=== PATIENT | female | born 1945 | race Asian ===

== ENCOUNTER → 2024-06-12 12:20 | Outpatient (REF) | payer MEDICARE, OTHER, SELFPAY | LOC: HWRAD 12:20 | PROVIDERS: ATTENDING PHYSICIAN Family Medicine | DX: J84.10 Pulmonary fibrosis, unspecified (principal) | CPT/HCPCS: 71250 ==

== ENCOUNTER → 2024-10-01 06:34 | Outpatient (REF) | payer MEDICARE, OTHER, SELFPAY | LOC: PAVMRI 06:34 | PROVIDERS: ATTENDING PHYSICIAN Physician Assistant; FAMILY PHYSICIAN Family Medicine | DX: M54.12 Radiculopathy, cervical region (principal) | CPT/HCPCS: 72141 ==

== ENCOUNTER 2024-10-08 10:22 | Inpatient (IN) | payer MEDICARE, OTHER, SELFPAY ==
[2024-10-07 15:09] VITALS: BP 167/77; BMI 22.4
[2024-10-07 15:24] LABS: % Basophils 0.7 % (0-2); % Eosinophils 1.3 % (0-6); % Immature Granulocytes 0.5 % (0-0.5); % Monocytes 9.2 % (1.7-9.3); % Neutrophils 66.3 % (42.2-75.2); Absolute Basophils 0.1 10^3/uL (0-0.2); Absolute Eosinophils 0.1 10^3/uL (0-0.7); Absolute Lymphocytes 1.9 10^3/uL (1.2-3.4); Absolute Monocytes 0.8 10^3/uL (0.1-0.6); Absolute Neutrophils 5.7 10^3/uL (1.4-6.5); Hematocrit 35.2 % (37.0-47.0); Hemoglobin 11.5 g/dL (12.0-16.0); Mean Corp Hgb Conc. 32.7 g/dL (33.0-37.0); Mean Corpuscular Hgb 25.1 pg (27.0-31.0); Mean Corpuscular Volume 76.9 fL (81.0-99.0); Mean Platelet Volume 11.4 fL (7.4-10.4); Nucleated Red Blood Cells % 0 %; Platelet Count 334 10^3/uL (130-400); Red Blood Cell Count 4.58 10^6/uL (4.20-5.40); White Blood Cell Count 8.6 10^3/uL (4.8-10.8)
--- NOTE | 2024-10-07 15:33 | ED.CVA ---
History of Present Illness
<Missael Littlejohn DO - Last Filed: 10/07/24 15:34>
General
Chief Complaint: CVA/TIA Symptoms
Time Seen by Provider: 10/07/24 15:10
<Zeina Mace PA-C - Last Filed: 10/07/24 22:35>
General
Source: patient and family
Exam Limitations: other
Nursing documentation reviewed up to this point in time: agreed with
Onset of Stroke Symptoms
Onset of symptoms known: Yes
Date of onset of symptoms: 10/07/24
Time of onset of symptoms: 13:40
Time pt last seen normal is known: Yes
Date last time pt seen normal: 10/07/24
Time last time pt seen normal: 13:30
History of Present Illness
History of Present Illness:
Patient is an 79-year-old female with history hypertension, hyperlipidemia, hypothyroid presenting to the emergency department via EMS following unwitnessed fall. Patient is not [place]-speaking. Offered design lead�although patient and family
request family translation.
Family states that at around 1:40 PM her daughter came out of the bathroom and found her mom slumped over, although awake. At that time her mom was having trouble seeking. Patient states that she was walking to the couch when she felt her left
hand go numb so she sat on the couch. It appears that she then fell forward striking her face on the hardwood floor. Following the fall she was alert, although had difficulty speaking. Family states that her speech remains somewhat slurred.
Patient denies any preceding chest pain, shortness of breath, dizziness, lightheadedness, sweatiness, nausea/vomiting prior to fall. Patient denies any current headache, neck pain, weakness, numbness/tingling.
Patient is on Plavix.
Past History
<Missael Littlejohn DO - Last Filed: 10/07/24 15:34>
Past History
ED Past Medical History: HTN, Hypercholesterolemia, Hypothyroidism, Psychiatric (Depression, ) and Other (Interstitial lung disease); Negative Asthma or NIDDM
ED Past Surgical History: Orthopedic (Al knee replacements, Shoulder surgery, ) and Other (Cataracts)
Social History
Tobacco: Non-smoker
Alcohol: None
Personal:
Living: with family
Review of Systems
<Zeina Mace PA-C - Last Filed: 10/07/24 22:35>
Review of Systems
Allergies reviewed?: Yes
All Other Systems: ROS reviewed and negative except as documented in HPI and ROS
Phy Exam
<Zeina Mace PA-C - Last Filed: 10/07/24 22:35>
Physical Exam
Physical Exam:
Vitals: Hypertensive, mildly tachycardic. Afebrile
General: Patient is well appearing, no acute distress. Nontoxic appearing
Skin: Warm and dry, no rashes or lesions
Head: Normocephalic, atraumatic
Eyes: Sclera nonicteric. EOMs intact. Visual borges intact. No nystagmus. Hematoma noted to left lateral brow. No proptosis or evidence of ocular trauma.
Throat: Protecting airway
Neck: Normal ROM, no cervical spine tenderness, no meningismus
Cardiac: Mildly tachycardic, normal rhythm, no murmurs.
Pulm: Normal respiratory effort, no wheezes, rales, rhonchi heard on exam.
Abdomen: No abdominal tenderness.
Extremities: No evidence of cyanosis or edema. Sensation fully intact to fine and dull touch. Strength 5 out of 5 in upper and lower extremities.
Neuro: AAOx3. CN II-XII intact. Subjective slurred speech. Follows commands. Normal [id number].
Psychiatric: Normal affect.
Scores
<Zeina Mace PA-C - Last Filed: 10/07/24 22:35>
NIH Stroke Score
Level of Consciousness: 0 - Alert
LOC Questions: 0-Answers both correctly
LOC Commands: 0-Performs both correctly
Best Horizontal Gaze: 0-Normal
Visual Borges: 0=Normal, no visual loss
Facial Palsy: 0=Normal, symmetrical
Motor - Right Arm: 0=No drift 10 seconds
Motor - Left Arm: 0=No drift 10 seconds
Motor - Right Le-No drift 5 seconds
Motor - Left Le-No drift 5 seconds
Limb Ataxia: 0-Absent
Sensation: 0-Normal
Best Language: 0-No aphasia
Dysarthria: 1-Mild slurring (According to patient's family at bedside, not appreciated by examiner)
Extinction and Inattention: 0-No abnormality
Total Score:: 1
Course
<Missael Littlejohn, DO - Last Filed: 10/07/24 15:34>
Orders/Labs/Results
Orders:
Orders
10/07/24 15:13
Electrocardiogram (*1) Urgent
Reason for Study: Fatigue / Weakness
EKG- Treatment ONCE
10/07/24 15:14
Basic Metabolic Panel Urgent
Complete Blood Count/With Diff Urgent
10/07/24 15:33
CT HEAD STROKE ALERT W/o Cont Urgent
Comment:
Reason For Exam: left hand numb, dysphia, head strike on plavix
10/07/24 15:49
PTT Urgent
Prothrombin Time Urgent
10/07/24 16:02
Aspirin Chewable [Low Strength Aspirin] 81 mg PO NOW STA
10/07/24 16:07
NEUROLOGY CONSULT Urgent
Consulting Provider: Shawn Waters
Was physician already notified: Yes
10/07/24 16:11
Troponin I Urgent
10/07/24 16:39
Add On- LAB Urgent
Tests Added?: lipid panel
10/07/24 17:00
Lorazepam [Ativan] 1 mg PO ONCE ONE
10/07/24 17:06
Admit/Transfer Patient As Directed
Co-Sign Provider:
Level of Care: Observation services
Assign to:: Telemetry
Physician / Group: Moises Guerra
Diagnosis: syncope, speech changes
Reason for Telemetry: CVA/TIA
Date to Stop Telemetry: 10/10/24
Time to Stop Telemetry: 11:00
10/07/24 17:07
PRN Pain Medication Management As Directed
May give lesser potent ordered pain med per pt: Yes
preference::
Protocol:: Medication orders for pain may be administered in a
manner that supports deferring to patient preference
when the pt is:
- Requesting an ordered lesser potent pain medication.
Least to most potent pain medications are defined
as: acetaminophen < NSAID < tramadol < opioids
(morphine, oxycodone, hydromorphone).
- Requesting a lesser dose of the same medication IF
ORDERED.
- Requesting a less intrusive route of administration
if both routes are prescribed by the provider (PO <
IV).
10/07/24 17:08
Code Status As Directed
Resuscitation Status: Full Code
10/07/24 17:58
Acetaminophen [Tylenol] 650 mg PO Q4HPRN PRN
Albuterol [ProAIR HFA INHALER] 1 puff INH R Q6HPRN PRN
10/07/24 17:58
MA [facility] Wo Routine
Comment:
Reason For Exam: stroke/TIA
Recent pill cam endoscopy?: No
MA Neck With Contrast Routine
Comment:
Reason For Exam: stroke/TIA
Recent pill cam endoscopy?: No
MR Brain Without Contrast Routine
Comment:
Reason For Exam: stroke/TIA
Recent pill cam endoscopy?: No
Activity As Directed
Activity Level: With Assistance
NIH Stroke Scale As Directed
Directions: Per protocol
Comment: every shift and with any change in condition or mental status
Neurological Checks As Directed
Frequency: q4h
Additional Instructions:: q4h x 24h upon admission to the floor, then qshift & with any change in condition
and mental status
Orthostatic Vital Signs As Directed
Orthostatic VS Frequency: BID
Patient Education As Directed
Type: Stroke education packet
Comment: provide to patient and family
Pneumatic Compression Sleeves As Directed
Type: Knee high
Vital Signs As Directed
Frequency: Per unit guidelines
Ot Eval And Treat Routine
Pt Eval And Treat Routine
Activity Level: With Assistance
Speech Therapy Eval & Treat Routine
DX Deep Vein Thrombosis Video Routine
10/07/24 18:04
Ketotifen Fumarate [Zaditor] 1 drop BOTH EYES DAILYPRN PRN
10/07/24 20:00
Calcium Carbonate/Vitamin D3 [Oscal 500 + D] 500 mg PO BID
10/07/24 22:00
Escitalopram Oxalate [Lexapro] 10 mg PO HS
Famotidine [Pepcid] 20 mg PO HS
Gabapentin [Neurontin] 100 mg PO HS
10/08/24 06:00
Basic Metabolic Panel IN AM
Cardiovascular Evaluation IN AM
Complete Blood Count/No Diff IN AM
Glycohemoglobin (HgbA1c) IN AM
Levothyroxine [Synthroid] 75 mcg PO DAILY @ 0600
10/08/24 08:00
Aspirin Chewable [Low Strength Aspirin] 81 mg PO DAILY
Clopidogrel Bisulfate [Plavix] 75 mg PO DAILY
Montelukast Sodium [Singulair] 10 mg PO DAILY
Pantoprazole [Protonix] 40 mg PO DAILY
Pravastatin Sodium [Pravachol] 40 mg PO DAILY
Valsartan [Diovan] 80 mg PO DAILY
fluticasone furoate-vilanterol [Breo Ellipta] 1 inh INH R DAILY
10/08/24 12:00
Multivitamin [Theragran] 1 tablet PO NOON
10/10/24 11:00
DC Protocol for Telemetry ONCE
Abnormal Lab Results
10/07/24
15:14
Hgb 11.5 L g/dL
(12.0-16.0)
Hct 35.2 L %
(37.0-47.0)
MCV 76.9 L fL
(81.0-99.0)
MCH 25.1 L pg
(27.0-31.0)
MCHC 32.7 L g/dL
(33.0-37.0)
RDW 18.0 H %
(11.5-14.5)
MPV 11.4 H fL
(7.4-10.4)
Absolute Monos (auto) 0.8 H 10^3/uL
(0.1-0.6)
Glucose 108 H mg/dl
(70-99)
10/07/24 15:14
10/07/24 15:14
Vital Signs
Initial and Last Documented VS:
Initial Vital Signs
Temp Pulse Resp BP Pulse Ox
98.3 F 101 23 167/77 97
10/07/24 15:09 10/07/24 15:09 10/07/24 15:09 10/07/24 15:09 10/07/24 15:09
Last Documented Vital Signs
Temp Pulse Resp BP Pulse Ox
97.7 F 91 16 171/91 99
10/07/24 18:12 10/07/24 18:12 10/07/24 18:12 10/07/24 18:12 10/07/24 18:12
<Zeina Mace PA-C - Last Filed: 10/07/24 22:35>
Orders/Labs/Results
Orders:
Orders
10/07/24 15:13
Electrocardiogram (*1) Urgent
Reason for Study: Fatigue / Weakness
EKG- Treatment ONCE
10/07/24 15:14
Basic Metabolic Panel Urgent
Complete Blood Count/With Diff Urgent
10/07/24 15:33
CT HEAD STROKE ALERT W/o Cont Urgent
Comment:
Reason For Exam: left hand numb, dysphia, head strike on plavix
10/07/24 15:49
PTT Urgent
Prothrombin Time Urgent
10/07/24 16:02
Aspirin Chewable [Low Strength Aspirin] 81 mg PO NOW STA
10/07/24 16:07
NEUROLOGY CONSULT Urgent
Consulting Provider: Shawn Waters
Was physician already notified: Yes
10/07/24 16:11
Troponin I Urgent
10/07/24 16:39
Add On- LAB Urgent
Tests Added?: lipid panel
10/07/24 17:00
Lorazepam [Ativan] 1 mg PO ONCE ONE
10/07/24 17:06
Admit/Transfer Patient As Directed
Co-Sign Provider:
Level of Care: Observation services
Assign to:: Telemetry
Physician / Group: Moises Guerra
Diagnosis: syncope, speech changes
Reason for Telemetry: CVA/TIA
Date to Stop Telemetry: 10/10/24
Time to Stop Telemetry: 11:00
10/07/24 17:07
PRN Pain Medication Management As Directed
May give lesser potent ordered pain med per pt: Yes
preference::
Protocol:: Medication orders for pain may be administered in a
manner that supports deferring to patient preference
when the pt is:
- Requesting an ordered lesser potent pain medication.
Least to most potent pain medications are defined
as: acetaminophen < NSAID < tramadol < opioids
(morphine, oxycodone, hydromorphone).
- Requesting a lesser dose of the same medication IF
ORDERED.
- Requesting a less intrusive route of administration
if both routes are prescribed by the provider (PO <
IV).
10/07/24 17:08
Code Status As Directed
Resuscitation Status: Full Code
10/07/24 17:58
Acetaminophen [Tylenol] 650 mg PO Q4HPRN PRN
Albuterol [ProAIR HFA INHALER] 1 puff INH R Q6HPRN PRN
10/07/24 17:58
MA [facility] Wo Routine
Comment:
Reason For Exam: stroke/TIA
Recent pill cam endoscopy?: No
MA Neck With Contrast Routine
Comment:
Reason For Exam: stroke/TIA
Recent pill cam endoscopy?: No
MR Brain Without Contrast Routine
Comment:
Reason For Exam: stroke/TIA
Recent pill cam endoscopy?: No
Activity As Directed
Activity Level: With Assistance
NIH Stroke Scale As Directed
Directions: Per protocol
Comment: every shift and with any change in condition or mental status
Neurological Checks As Directed
Frequency: q4h
Additional Instructions:: q4h x 24h upon admission to the floor, then qshift & with any change in condition
and mental status
Orthostatic Vital Signs As Directed
Orthostatic VS Frequency: BID
Patient Education As Directed
Type: Stroke education packet
Comment: provide to patient and family
Pneumatic Compression Sleeves As Directed
Type: Knee high
Vital Signs As Directed
Frequency: Per unit guidelines
Ot Eval And Treat Routine
Pt Eval And Treat Routine
Activity Level: With Assistance
Speech Therapy Eval & Treat Routine
DX Deep Vein Thrombosis Video Routine
10/07/24 18:04
Ketotifen Fumarate [Zaditor] 1 drop BOTH EYES DAILYPRN PRN
10/07/24 20:00
Calcium Carbonate/Vitamin D3 [Oscal 500 + D] 500 mg PO BID
10/07/24 22:00
Escitalopram Oxalate [Lexapro] 10 mg PO HS
Famotidine [Pepcid] 20 mg PO HS
Gabapentin [Neurontin] 100 mg PO HS
10/08/24 06:00
Basic Metabolic Panel IN AM
Cardiovascular Evaluation IN AM
Complete Blood Count/No Diff IN AM
Glycohemoglobin (HgbA1c) IN AM
Levothyroxine [Synthroid] 75 mcg PO DAILY @ 0600
10/08/24 08:00
Aspirin Chewable [Low Strength Aspirin] 81 mg PO DAILY
Clopidogrel Bisulfate [Plavix] 75 mg PO DAILY
Montelukast Sodium [Singulair] 10 mg PO DAILY
Pantoprazole [Protonix] 40 mg PO DAILY
Pravastatin Sodium [Pravachol] 40 mg PO DAILY
Valsartan [Diovan] 80 mg PO DAILY
fluticasone furoate-vilanterol [Breo Ellipta] 1 inh INH R DAILY
10/08/24 12:00
Multivitamin [Theragran] 1 tablet PO NOON
10/10/24 11:00
DC Protocol for Telemetry ONCE
Abnormal Lab Results
10/07/24
15:14
Hgb 11.5 L g/dL
(12.0-16.0)
Hct 35.2 L %
(37.0-47.0)
MCV 76.9 L fL
(81.0-99.0)
MCH 25.1 L pg
(27.0-31.0)
MCHC 32.7 L g/dL
(33.0-37.0)
RDW 18.0 H %
(11.5-14.5)
MPV 11.4 H fL
(7.4-10.4)
Absolute Monos (auto) 0.8 H 10^3/uL
(0.1-0.6)
Glucose 108 H mg/dl
(70-99)
10/07/24 15:14
10/07/24 15:14
Vital Signs
Initial and Last Documented VS:
Initial Vital Signs
Temp Pulse Resp BP Pulse Ox
98.3 F 101 23 167/77 97
10/07/24 15:09 10/07/24 15:09 10/07/24 15:09 10/07/24 15:09 10/07/24 15:09
Last Documented Vital Signs
Temp Pulse Resp BP Pulse Ox
97.7 F 91 16 171/91 99
10/07/24 18:12 10/07/24 18:12 10/07/24 18:12 10/07/24 18:12 10/07/24 18:12
<Zeina Mace PA-C - Last Filed: 10/07/24 22:35>
MDM/Problems Addressed
Differential Diagnosis Includes:
Not limited to: CVA, TIA, syncope, cardiac arrhythmia, intracranial hemorrhage
MDM/Problems Addressed:
79-year-old female presenting following unwitnessed fall with persistent slurring of speech. Patient not [place] speaking although family translating at bedside. History of left hand numbness followed by unwitnessed fall, and brief period of
aphasia. Family reports ongoing slurring of patient's speech. Last known normal 1:30 PM. patient hypertensive, otherwise vital signs are stable. EKG shows sinus tachycardia not any acute ischemic changes. Physical exam as above. Patient alert
and oriented x 3 on my assessment. Patient is following commands. She does have contusion noted to left lateral brow. No other focal neurologic deficits noted on exam. NIH scale of 1 given report of ongoing slurred speech although not
appreciable on my examination. Not clearly consistent with syncopal event. Concern for possible TIA vs CVA. Given history and ongoing slurred speech per family�a stroke alert was called at 3:34 PM.
Chronic conditions affecting care:
Hypertension, hyperlipidemia
Acute Exacerbation and/or Progression of Chronic Illness:
Acutely hypertensive
<Zeina Mace PA-C - Last Filed: 10/07/24 22:35>
*Radiology
Radiology exam reviewed: preliminary read by ED provider and radiology read reviewed (No acute hemorrhage or infarct)
*Pulse Oximetry
Patient hypoxic: no
*EKG
Interpreted by ED Provider?: Yes
EKG Intrepretation Date: 10/07/24
Interpretation: abnormal
Comparison EKG: no changes
Heart Rate: 101
Rate: tachycardiac
Rhythm: sinus
*Machine Setter Supervisor Interpretation
Rate: tachycardiac
Interpretation: normal
Heart Rate: 104
Rhythm: sinus
*Critical Care Note
Total Time (30-74mins, 75-104mins- exclusive of procedures): Not Applicable
<Zeina Mace PA-C - Last Filed: 10/07/24 22:35>
Update Note
Update Note:
Update 3:47 PM: CT without any acute hemorrhage or infarct. Neurology, Dr. Waters at bedside. Given NIH less than 6�no indication for TNK. Patient does have risk factors for CVA including hyperlipidemia and hypertension. It is possible this was a
TIA versus CVA. Other differential include possible syncope although patient denies any preceding symptoms. No evidence of cardiac arrhythmia since arrival to emergency department. Patient will be admitted to hospitalist for further workup
including MRI, carotid imaging. At this time patient remains alert and oriented without any progressive neurologic deficit. Patient given dose of baby aspirin. Patient accepted to hospitalist service in stable condition.
ED Attending Note
<Missael Littlejohn DO - Last Filed: 10/07/24 15:34>
ED Attending Note
Patient seen and examined by attending physician: Yes
I performed the substantive portion of visit, reviewed & personally made and approve the management plan that is documented in note by myself or ABBY.: Yes
I performed a history and physical exam of patient and discussed management with resident, I reviewed resident's note and agree with documented findings and plan of care.: Yes
ED Attending Note:
I evaluated the patient at bedside. Symptoms started around 1:40 PM today. She was last seen normal just prior to that time with family. At that time she started having left hand numbness then she fell to the ground striking her head but at that
time family also noted garbled speech which is currently persisting. Will activate stroke alert at 3:34 PM.
-
Portions of this chart may have been created with voice recognition software.� Occasional wrong word or��sound alike� substitutions may have occurred due to the inherent limitations of voice recognition software.
Discharge Plan
Departure
Patient Disposition: Admit
Date of Disposition: 10/07/24
Time of Disposition: 16:05
Presentation/result/management discussed w/ accepting MD/DO: Hospitalist
Discharge Problem:
Stroke-like symptoms
Interventions
Interventions:
*Risk Screen - Suicide Last Done: 10/07/24 15:14
*General Assessment Last Done: 10/07/24 15:14
*Neglect/Abuse Screening Last Done: 10/07/24 15:14
ED- Fall Risk Assessment Last Done: 10/07/24 17:53
*ED COVID-19 Vaccine History Last Done: 10/07/24 15:14
*Nursing Disposition Last Done: 10/07/24 17:53
ED- Cardiac Assessment Last Done: 10/07/24 15:15
ED- Neurological Assessment Last Done: 10/07/24 15:15
ED- Pulmonary Assessment Last Done: 10/07/24 15:15
ED Swallowing Screen Last Done: 10/07/24 16:20
Discharge Date and Time
Discharge Date/Time: 10/07/24 17:53
[2024-10-07 15:41] LABS: Blood Urea Nitrogen 15 mg/dl (7-17); Calcium 9.7 mg/dl (8.4-10.2); Carbon Dioxide 23 mmol/L (22-30); Chloride 101 mmol/L (98-107); Estimated Creatinine Clearance 48 ml/min; Glucose 108 mg/dl (70-99); Sodium 137 mmol/L (135-145); eGFR > 60.00
[2024-10-07 16:00] VITALS: BP 159/76
[2024-10-07 16:07] LABS: INR 1.02; PT 13.9 Sec (11.4-14.6)
[2024-10-07 16:08] LABS: APTT 32.6 Sec (23.4-35.0)
--- NOTE | 2024-10-07 16:11 | CON.NEURO ---
Neuro Assessment/Plan
Assessment
Abrupt onset of speech change and left hemibody sensory change
Differential diagnosis includes stroke/TIA
Patient not a candidate for either tenecteplase or intra-arterial thrombectomy due to NIH stroke scale less than 6
Plan
Aspirin 81 mg to the patient's usual outpatient clopidogrel
Check MRI brain with MRA head and neck
Would continue gabapentin temporarily
Will follow
Consultation
Order
Date of Consultation: 10/07/24
Requesting Provider: Emergency department provider
Reason for Consult: Stroke alert
Subjective/Objective
Subjective Data
Date of Service: October 07, 2024
Right-handed
Patient presented to this hospital's emergency department with acute onset of change of speech after falling at home. The patient was heard by her [id number] to fall at 1330 hrs. today. Upon finding her, the patient was seen to have been
laying on the ground and immediately was described as having slurred speech. The patient described herself is experiencing a left-sided arm and leg numbness which resolved after approximately 20 minutes. The patient's speech difficulty, however,
has continued. The patient has not had any other medical changes recently. No other known associated symptoms.
Objective Data
Vital Signs
Temp Pulse Resp BP Pulse Ox
36.8 C 105 24 167/77 97
10/07/24 15:09 10/07/24 15:45 10/07/24 15:45 10/07/24 15:09 10/07/24 15:45
Lab Results
10/07/24 15:14
10/07/24 15:14
PT 13.9 Sec (11.4-14.6) 10/07/24 15:49
INR 1.02 10/07/24 15:49
Sodium 137 mmol/L (135-145) 10/07/24 15:14
Potassium mmol/L (3.5-5.1) 10/07/24 15:14
BUN 15 mg/dl (7-17) 10/07/24 15:14
Glucose 108 mg/dl (70-99) H 10/07/24 15:14
Calcium 9.7 mg/dl (8.4-10.2) 10/07/24 15:14
Patient Allergies
No Known Allergies Allergy (Verified 07/25/23 21:02)
CVA Assessment
Onset of Stroke Symptoms
Onset of symptoms known: Yes
Date of onset of symptoms: 10/07/24
Time of onset of symptoms: 13:30
Time pt last seen normal is known: Yes
Date last time pt seen normal: 10/07/24
Time last time pt seen normal: 13:30
NIH Stroke Score
Level of Consciousness: 0 - Alert
LOC Questions: 1-Answers one correctly
LOC Commands: 1-Performs one correctly
Best Horizontal Gaze: 0-Normal
Visual Borges: 0=Normal, no visual loss
Facial Palsy: 0=Normal, symmetrical
Motor - Right Arm: 0=No drift 10 seconds
Motor - Left Arm: 0=No drift 10 seconds
Motor - Right Le-No drift 5 seconds
Motor - Left Le-No drift 5 seconds
Limb Ataxia: 0-Absent
Sensation: 0-Normal
Best Language: 0-No aphasia
Dysarthria: 1-Mild slurring (According to the patient's iklljyrr-[id number]. Not clearly detected by this interviewer)
Extinction and Inattention: 0-No abnormality
Total Score:: 3
Tenecteplase Contraindications
Inclusion and Exclusion criteria reviewed: Yes
IAT Contraindications: NIHSS < 6
Review of Systems
-
Unable to obtain full review of systems at this time due to: Language Barrier
History Source: Patient
EENT: Negative Decreased Vision or Swallowing Difficulty
Respiratory: Negative Trouble Breathing
Cardiac: Negative Chest Pain
Abdomen/GI: Negative Incontinence of Stool
Genitourinary: Negative Incontinence
Musculoskeletal: Neck Pain; Negative Back Pain
Neuro: Negative Dizzy or Headache
Physical Exam
-
General: No Apparent Distress and Appears Stated Age
Eyes: OU Absent Papilledema, Able to visualize OU, Round OU, [place] Conjunctivae and No Ptosis
HEENT: Anicteric and Moist Mucous Membranes
Neck: Full Range of Motion
Respiratory: No Dyspnea
Cardiac: No JVD
GI: Non-distended
Skin: Unremarkable
Extremities: No Clubbing, No Cyanosis and No Edema
Psych: Intact Judgement/Insight
Extended Neurological Exam
Mood & Affect: Mood Unremarkable and Affect Unremarkable
Attention Span & Concentration: Awake, Alert, Interactive and Mild Difficulty with 2 Step Request
Memory: Reduced (For current month which she describes as December and initially describes the year as 2024 before correcting to 2023)
Tremor: Hand Tremor Absent and Head Tremor Absent
Involuntary Movement: None
Speech: Quality Unremarkable (Not performed in Monegasque) and Mildly Reduced Output
Cranial Nerve II: Left Eye: Pupillary Reactivity Unremarkable, Pupillary Size Unremarkable and Visual Borges Intact
Cranial Nerve II: Right Eye: Pupillary Reactivity Unremarkable, Pupillary Size Unremarkable and Visual Borges Intact
Cranial Nerves III, IV, : Extraocular Movement: Extraocular Movement Full in all Directions and No Ptosis
Cranial Nerve VII: Facial Symmetry: Normal Facial Symmetry
Cranial Nerve VIII: Hearing: Unremarkable Hearing to Normal Conversational Volume
Cranial Nerves IX, X: Palate Movement: Palate Elevation Symmetric
Cranial Nerve XI: Shoulder Shrug: Unremarkable
Cranial Nerve XII: Tongue Protusion: Midline
Muscle Strength, Overall: Full Throughout
Muscle Bulk & Tone: Bulk Unremarkable and Tone Unremarkable
Pronator Drift: No Drift in Upper Extremities and No Drift in Lower Extremities
Deep Tendon Reflexes: Unremarkable Throughout
Touch Sensation: Unremarkable; Negative Double Simultaneous Stimulation Unremarkable (Reduced left-sided awareness with double simultaneous testing)
Coordination: Axxlhp-exnb-tdckty Testing Unremarkable
Babinski Sign: Absent Bilaterally
Gait & Station: Unable to Assess
Data Reviewed
-
CT Head: Report Reviewed and Image Reviewed
Labs: Report Reviewed
Reviewed with: Nurse, Physician Builder Beam, Patient and Family
Old Records: Summarized
Medications
-
Home Medications
�Medication �Instructions �Recorded
clopidogrel 75 mg tablet 75 mg PO DAILY 08/01/18
pravastatin 40 mg tablet 40 mg PO DAILY 08/01/18
alendronate 70 mg tablet (Fosamax) 70 mg PO MO 12/21/22
calcium 600 mg (as 1 tab PO BID 12/21/22
carbonate)-vitamin D3 5 mcg (200
unit) tablet
escitalopram oxalate 10 mg tablet 10 mg PO HS 12/21/22
(Lexapro)
fluticasone furoate 200 1 inh inhalation DAILY 12/21/22
mcg-vilanterol 25 mcg/dose
inhalation powder (Breo Ellipta)
gabapentin 100 mg capsule 100 mg PO HS 12/21/22
levothyroxine 75 mcg tablet 75 mcg PO DAILY 12/21/22
montelukast 10 mg tablet 10 mg PO DAILY 12/21/22
(Singulair)
mqlshtdknwqm-sunckghr-ddqfhk tablet 1 tab PO DAILY 12/21/22
omeprazole 20 mg capsule,delayed 20 mg PO DAILY 12/21/22
release
acetaminophen 300 mg-codeine 15 mg 1 - 2 tab PO Q6H PRN 1 tab 12/26/22
tablet moderate pain or 2 if severe #30
tabs
dexamethasone 4 mg tablet 4 mg PO BID inflammation #6 tabs 12/26/22
famotidine 20 mg tablet 20 mg PO HS GI prophylaxis #30 tabs 12/26/22
mupirocin 2 % topical ointment 1 applic topical BID #1 tube 12/26/22
ondansetron 4 mg disintegrating 4 mg PO Q6H PRN n/v #20 tabs 12/26/22
tablet
acetaminophen 325 mg capsule 650 mg (2 x 325 mg) PO Q4H PRN 01/08/23
mild pain #30 caps
aspirin 325 mg capsule 325 mg PO DAILY #30 caps 01/08/23
docusate sodium 100 mg capsule 100 mg PO BID #30 caps 01/08/23
(Colace)
sennosides 8.6 mg capsule (senna) 17.2 mg (2 x 8.6 mg) PO BID #30 01/08/23
caps
valsartan 80 mg tablet 80 mg PO DAILY #1 tab 01/08/23
cephalexin 500 mg capsule 500 mg PO BID Urinary issue 7 days 07/26/23
#14 caps
oxycodone 5 mg tablet 5 mg PO Q4H PRN Pain #10 tabs 07/26/23
Past History
Past History
ED Past Medical History: HTN, Hypercholesterolemia, Hypothyroidism, Psychiatric (Depression) and Other (Interstitial lung disease, osteoporosis)
ED Past Surgical History: Orthopedic (Al knee replacements, right shoulder surgery, ) and Other (Cataracts)
Social History
Tobacco: Non-smoker
Alcohol: None
Personal:
Living: with family
Employment: Retired
Family History
Family History: Other (Reviewed and noncontributory)
[2024-10-07 16:19] VITALS: BP 177/87
[2024-10-07] MEDS: LOW STRENGTH ASPIRIN 81 MG PO (16:23)
[2024-10-07 16:41] LABS: Troponin I < 0.012 ng/ml
[2024-10-07 17:00] VITALS: BP 166/92
--- NOTE | 2024-10-07 17:11 | HPS.HSE ---
Family Physician
-
Family Physician: Carmen Paez
Chief Complaint
-
Syncope, slurred speech
History of Present Illness
Patient is a 79-year-old female with past medical history of essential hypertension, hyperlipidemia, depression, GERD, osteoporosis, history of right TKR, history of right shoulder replacement was brought in by family after patient was found to be
slumped over at home. Apparently patient was sitting on the sofa and at some point presumably patient lost consciousness, this was unwitnessed. Patient yvxdghwy-ht-kol was in bathroom for 20-30 minutes and when checked on patient after coming out
noticed patient to be slumped over in sofa. Patient have left temporal ecchymosis and and patient unsure if she hit her head. Patient does not remember any preceding shortness of breath/palpitations/nausea/diaphoresis. No previous history of
syncope. After regaining consciousness patient was noted to having change in speech and difficulty with word finding, by the time in the ER patient speech has recovered. No other major neurological deficits reported by patient.
Patient denies of having any previous history of syncope, no major history of cardiac problems. Patient is not a smoker/no alcohol use. Patient takes Plavix apparently for renal arterial atherosclerosis per family.
No cardiopulmonary/GI/ complains.
Medical History
Past Medical History
Past Medical History: Reports Other
Additional Past Medical History:
essential hypertension, hyperlipidemia, depression, GERD, osteoporosis, history of right TKR, history of right shoulder replacement
Past Surgical History: Reports Other
Social History
Tobacco: Non-smoker
Alcohol: None
Drug: None
Living: With Family
Family History
Family History: Not pertinent
Allergies / Home Medications
Allergies reflects when Allergies were last updated in [employer].
Home Medications with original date entered in [employer]
Allergy/Medication List:
Allergies
Allergy/AdvReac Type Severity Reaction Status Date / Time
No Known Allergies Allergy Verified 07/25/23 21:02
Home Medications
clopidogrel 75 mg tablet 75 mg PO DAILY Blood Clot Prevention/Tx 08/01/18
pravastatin 40 mg tablet 40 mg PO DAILY High Cholesterol 08/01/18
alendronate 70 mg tablet (Fosamax) 70 mg PO BRISCOE osteoporosis 12/21/22
escitalopram oxalate 10 mg tablet (Lexapro) 10 mg PO HS depression/anxiety 12/21/22
fluticasone furoate 200 mcg-vilanterol 25 mcg/dose inhalation powder (Breo Ellipta) 1 inh inhalation R DAILY Lung/Breathing Issues 12/21/22
gabapentin 100 mg capsule 100 mg PO HS pain 12/21/22
levothyroxine 75 mcg tablet 75 mcg PO DAILY Thyroid 12/21/22
montelukast 10 mg tablet (Singulair) 10 mg PO DAILY Allergies 12/21/22
fhhlradexehr-rftwzuzs-ouecyk tablet 1 tab PO NOON Supplement 12/21/22
omeprazole 20 mg capsule,delayed release 20 mg PO DAILY Gastrointestinal Issue 12/21/22
famotidine 20 mg tablet 20 mg PO HS GI prophylaxis #30 tabs 12/26/22
acetaminophen 325 mg capsule 650 mg (2 x 325 mg) PO Q4H PRN mild pain #30 caps 01/08/23
albuterol sulfate 90 mcg/actuation aerosol inhaler 1 inh inhalation R Q6HPRN PRN sob 10/07/24
calcium 600 mg (as carbonate)-vitamin D3 10 mcg (400 unit) tablet (Calcium 600 + D(3)) 1 tab PO BID Supplement 10/07/24
olopatadine 0.2 % eye drops 1 drp BOTH EYES DAILYPRN PRN eye irritation 10/07/24
valsartan 80 mg tablet 80 mg PO DAILY Blood Pressure 10/07/24
Review of Systems
-
A 12 point ROS was completed and negative except as noted: Yes
Physical Exam
Vital Signs
Vital Signs
Temp Pulse Resp BP Pulse Ox
98.3 F 96 20 166/92 98
10/07/24 15:09 10/07/24 17:00 10/07/24 17:00 10/07/24 17:00 10/07/24 16:45
Physical Exam
General: No Apparent Distress
HEENT: NormoCephalic, Moist mucous membranes and Atraumatic
Respiratory: Clear
Cardiac: S1/S2 and Regular Rhythm; No Murmur or Rub
GI: Soft, Non Tender, Non Distended and Normal Bowel Sounds; No Organomegaly
Musculoskeletal: No Clubbing, No Cyanosis and No Edema
Skin: No Rash
Neuro: Awake, Alert, Oriented and Nonfocal/grossly intact
Laboratory Results
-
10/07/24 15:14
10/07/24 15:14
Laboratory Results
PT 13.9 Sec (11.4-14.6) 10/07/24 15:49
INR 1.02 10/07/24 15:49
APTT 32.6 Sec (23.4-35.0) 10/07/24 15:49
Total Bilirubin Cancelled 10/07/24 15:14
AST Cancelled 10/07/24 15:14
ALT Cancelled 10/07/24 15:14
Alkaline Phosphatase Cancelled 10/07/24 15:14
Troponin I < 0.012 ng/ml 10/07/24 16:11
Data Reviewed
-
CT Scan: Image Personally Visualized and interpreted and Report Reviewed by me
Impression/Plan
-
1. Syncope
-Patient was found to be slumped over in sofa
-No previous reported history of single
-Patient does not remember any preceding symptoms
-Patient hypertensive in ER, check orthostatic vitals
-Monitor on telemetry
-No reported history of head injury/seziures in the past , monitor.
2. Slurred speech
R/o CVA
-Patient had slurred speech which can possibly be related to decrease cerebral perfusion versus true CVA
-Speech changes has resolved largely in ER. No other neurological deficit on exam
-CT head without contrast ruled out hemorrhagic CVA
-MRI brain and MRA head and neck ordered
-Check lipid profile in morning
-Neurology evaluated the patient in ER, help appreciate
-Already on Plavix, started on aspirin 81 mg as well
3. HTN urgency
-Permissive hypertension window currently
-Hydralazine for systolic blood pressure above 220 and diastolic above 120
HLD
Hypothyroidism
Neuropathy
Allergy
Right TKR
Right shoulder replacement
GERD
Osteoporosis
DVT PPX - scd
Full code
Total time spent : 73 mins
I personally saw and examined the patient.
I have reviewed all diagnostic interpretations and treatment plans as written.
Time includes patient management by me, time spent at the patients bedside, time to review lab and imaging results, discussing patient care, documentation in the medical record, and time spent with the family or caregiver and discussing care plan
with RN/Consultants.
[2024-10-07 18:08] VITALS: BMI 22.1
[2024-10-07 18:12] VITALS: BP 171/91
--- NOTE | 2024-10-07 19:44 | PTCARENOTE ---
NIH score 7 upon arrival to floor. Used assistance of family members to give direction as patient does not speak Barbadian. Score as follows: 2 for resting left facial droop, 2 for severe aphasia; 2 for bilateral upper ataxia, and 1 for mild slurring.
OLERICULTURIST notified of changes to NIH score and is coming to floor to assess patient. Patient passed nursing swallowing screen. MRI pending. Patient has bruise on lateral aspect of left eye.
[2024-10-07] MEDS: OSCAL 500 + D 500 MG PO (21:40)
[2024-10-07] MEDS: LEXAPRO 10 MG PO (21:40)
[2024-10-07] MEDS: PEPCID 20 MG PO (21:40)
[2024-10-07] MEDS: NEURONTIN 100 MG PO (21:40)
--- NOTE | 2024-10-07 22:23 | W.PN.UPDATE ---
Update Note
Progress Note Update
Per nursing patient scored NIH of 7 upon arrival to the unit from ED. ED NIH 3. Upon visit, patient's daughter at the bedside translating. Per daughter, patient [id number]. Daughter reports prior to my arrival pt had worsening slurred speech and was able
to only understand 7 out of 10 words from her mother. Daughter also reports patient had brief episode of left side droop of patient's mouth at rest. Upon my assessment, patient score NIH score of 1 for mild slurring of the speech. Daughter states
the time since I have been there the left face droop has improved, and she is able to now understand 9 out of 10 words mother is saying and slurred speech has also improved. Pending MRI in the AM. Nursing will continue to monitor. Family will stay
overnight to help with patient and translate.
NIH Stroke Score
Subsequent NIH Scale
Date of Subsequent NIH Scale: 10/07/24
Time of Subsequent NIH Scale: 19:50
NIH Stroke Score
Level of Consciousness: 0 - Alert
LOC Questions: 0-Answers both correctly
LOC Commands: 0-Performs both correctly
Best Horizontal Gaze: 0-Normal
Visual Borges: 0=Normal, no visual loss
Facial Palsy: 0=Normal, symmetrical
Motor - Right Arm: 0=No drift 10 seconds
Motor - Left Arm: 0=No drift 10 seconds
Motor - Right Le-No drift 5 seconds
Motor - Left Le-No drift 5 seconds
Limb Ataxia: 0-Absent
Sensation: 0-Normal
Best Language: 0-No aphasia
Dysarthria: 1-Mild slurring
Extinction and Inattention: 0-No abnormality
Total Score:: 1
[2024-10-07 23:56] VITALS: BP 154/72
[2024-10-08] VITALS (8 sets, daily range): BP systolic 126–161; BP diastolic 68–84; PULSE 80–93; O2SAT 100
[2024-10-08] MEDS: SYNTHROID 75 MCG PO (05:05)
[2024-10-08] MEDS: SYMBICORT 160/4.5 MCG INHALER 2 PUFF INH ×2 (07:16→19:28)
[2024-10-08] MEDS: ATIVAN 1 MG PO (07:50)
[2024-10-08 08:28] LABS: Hematocrit 35.2 % (37.0-47.0); Hemoglobin 11.2 g/dL (12.0-16.0); Mean Corp Hgb Conc. 31.8 g/dL (33.0-37.0); Mean Corpuscular Hgb 24.9 pg (27.0-31.0); Mean Corpuscular Volume 78.4 fL (81.0-99.0); Mean Platelet Volume 11.4 fL (7.4-10.4); Platelet Count 315 10^3/uL (130-400); Red Blood Cell Count 4.49 10^6/uL (4.20-5.40); Red Cell Dist. Width 18.1 % (11.5-14.5); White Blood Cell Count 6.9 10^3/uL (4.8-10.8)
[2024-10-08 08:38] LABS: Glycohemoglobin (HgbA1c) 5.6 % (4.0-5.6)
[2024-10-08 08:57] LABS: Blood Urea Nitrogen 9 mg/dl (7-17); Calcium 9.4 mg/dl (8.4-10.2); Carbon Dioxide 24 mmol/L (22-30); Chloride 103 mmol/L (98-107); Estimated Creatinine Clearance 48 ml/min; Glucose 101 mg/dl (70-99); HDL Cholesterol 67 mg/dl; LDL Cholesterol, Calculated 53 mg/dl; Potassium 4.3 mmol/L (3.5-5.1); Sodium 139 mmol/L (135-145); Total Cholesterol 135 mg/dl (50-199); Triglyceride 79 mg/dl (10-149); Very Low Density Lipoprotein 15 mg/dl (0-30); eGFR > 60.00
--- NOTE | 2024-10-08 10:23 | W.PN.NEURO.1 ---
Addendum entered and electronically signed by Shawn Waters MD 10/09/24 15:55:
Patient subsequently found to have atrial fibrillation
Would discontinue antiplatelet agents and instead provide anticoagulation
Original Note:
Today's Communication / Plan
-
Aspirin 81 mg to the patient's usual outpatient clopidogrel, for goal of 21 days, then return to clopidogrel 75 mg daily
Check carotid ultrasound to better understand if stenosis is significant
Consult vascular surgery due to probable stenosis requiring intervention
Continue pravastatin as LDL is less than 70
Neuro Assessment/Plan
Assessment
Abrupt onset of speech change and left hemibody sensory change
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
Patient's MRA of the neck suggesting 60% stenosis of the right internal carotid artery is most likely causative
Plan
Aspirin 81 mg to the patient's usual outpatient clopidogrel, for goal of 21 days, then return to clopidogrel 75 mg daily
Check carotid ultrasound to better understand if stenosis is significant
Consult vascular surgery due to probable stenosis requiring intervention
Continue pravastatin as LDL is less than 70
Goal of normotension 24 hours after onset of symptoms
Continue gabapentin temporarily
Rehabilitation evaluations and treatment
Provide medical educational materials
Will follow as needed
Subjective/Objective
Subjective Data
Date of Service: October 08, 2024
Objective Data
Vital Signs
Temp Pulse Resp BP Pulse Ox
37.1 C 80 18 147/80 96
10/08/24 07:35 10/08/24 07:35 10/08/24 07:35 10/08/24 07:35 10/08/24 07:35
Lab Results
10/08/24 07:02
10/08/24 07:02
PT 13.9 Sec (11.4-14.6) 10/07/24 15:49
INR 1.02 10/07/24 15:49
APTT 32.6 Sec (23.4-35.0) 10/07/24 15:49
Sodium 139 mmol/L (135-145) 10/08/24 07:02
Potassium 4.3 mmol/L (3.5-5.1) 10/08/24 07:02
BUN 9 mg/dl (7-17) 10/08/24 07:02
Glucose 101 mg/dl (70-99) H 10/08/24 07:02
Calcium 9.4 mg/dl (8.4-10.2) 10/08/24 07:02
LDL Cholesterol, Calc 53 mg/dl 10/08/24 07:02
Patient Allergies
No Known Allergies Allergy (Verified 07/25/23 21:02)
Physical Exam
-
Data Reviewed
-
MRI Head: Report Reviewed and Image Reviewed
MRA Head: Report Reviewed
MRA Neck: Report Reviewed
Carotid Ultrasound: Ordered
Labs: Report Reviewed
Reviewed with: Physician
Old Records: Summarized
--- NOTE | 2024-10-08 11:10 | CON.VAS ---
Addendum entered and electronically signed by Guerrero Hawkins III, MD 10/09/24 13:34:
This patient was seen and examined with EDSON Morales. I agree with the history and physical exam as well as the assessment and plan. I have the following additions:
Patient's family at bedside and provided translation and additional history.
79-year-old female presents with right hemispheric stroke. Brain MRI demonstrates acute infarct in the right centrum semiovale.
I personally reviewed the carotid duplex images as well as the CT angiogram of the head and neck. I performed centerline reconstructions of the carotid artery and corporate representative images are below.
The carotid duplex velocity profiles are consistent with less than 50% internal carotid artery stenosis on the right
By my direct centerline measurement on the right there is less than 50% stenosis of the internal carotid artery. There is focal calcified plaque at the proximal internal carotid artery but this is not contributing to a significant stenosis at this
location. There is no evidence of soft plaque. Just distal to the carotid plaque there is an area of significant internal carotid artery tortuosity.
A/P: The degree of stenosis in the right internal carotid artery is less than 50% and I do not suspect this is the most likely culprit for stroke. There is tortuosity of the right ICA just distal to the calcified plaque which can lead to distal
embolization/stroke, however this diagnosis is less certain at this point.
For now I recommend continuing workup with TTE and cardiology evaluation given the uncertainty with the right ICA as the culprit for stroke.
If after the workup is completed the consensus is that the carotid tortuosity represents the most likely etiology for her stroke then carotid surgery may be indicated on this admission.
I spoke extensively with 3 separate family members who are all at the bedside and an additional family member who was present on speaker phone during the entire encounter.
Will follow along with you.
Signed:
Guerrero Hawkins III, MD
[facility] Vascular Surgery
[phone] ([phone])
Original Note:
Consultation
Consultation Request
Performing Provider: Ross
Reason for Consultation: CVA/carotid stenosis
Medical History
-
Chief Complaint: Slurred speech
History of Present Illness:
79-year-old female with past medical history significant for hypertension, hyperlipidemia, GERD, depression, right total knee replacement and right shoulder replacement presented to the ER yesterday afternoon with slurred speech and possible
left-sided weakness. Daughter had gone to the bathroom and when she returned about 20 to 30 minutes later patient was found slumped over on the couch with bruising to the face. At that time daughter states patient's speech was slurred and she
could not understand most of the words she was saying. Assumed patient fell and hit her face on floor. Once patient arrived to ER her speech was clear per the daughter who was interpreting. Patient was seen by neurology in the ER. Not a
candidate for tPA due to NIH of 1.
Brain MRI: 3.0 x 1.9 cm acute, nonhemorrhagic infarct. This is centered in the right centrum semiovale. It extends into the subcortical white matter of posterior right frontal lobe and anterior right parietal lobe. No mass effect related to this
infarct
Neck MRA: 1 cm long segment of approximately 60% stenosis just distal to the origin of the right internal carotid artery. High-grade stenosis (exceeding 80%) at the origin of the right external carotid artery
CTA: Severe calcific atherosclerotic plaque in the right carotid bifurcation causing 50-70% diameter stenosis in the proximal right ICA and greater than 70% diameter stenosis in the proximal right ECA. Severe tortuosity of the proximal right ICA.
Carotid ultrasound: Minimal calcified carotid bulb plaque on each side, measurements suggestive of less than 50% stenosis on each side.
Patient takes Plavix apparently for renal arterial atherosclerosis per family.
Vascular consult for carotid stenosis evaluation/possible revascularization. Patient seen at bedside this am with Dr. Hawkins.
Past Medical History
Past Medical History: GERD, HTN and Other (hyperlipidemia, depression, osteoporosis)
Past Surgical History: Orthopedic
Social History
Tobacco: Non-Smoker
Alcohol: None
Drug: None
Living: With Family
Family History
Family History: Reviewed & Not Pertinent
Allergies / Home Medications
Allergy/AdvReac Type Severity Reaction Status Date / Time
No Known Allergies Allergy Verified 07/25/23 21:02
�Medication �Instructions �Recorded �Confirmed �Type
clopidogrel 75 mg tablet 75 mg PO DAILY Blood Clot 08/01/18 10/07/24 History
Prevention/Tx
pravastatin 40 mg tablet 40 mg PO DAILY High Cholesterol 08/01/18 10/07/24 History
alendronate 70 mg tablet (Fosamax) 70 mg PO BRISCOE osteoporosis 12/21/22 10/07/24 History
escitalopram oxalate 10 mg tablet 10 mg PO HS depression/anxiety 12/21/22 10/07/24 History
(Lexapro)
fluticasone furoate 200 1 inh inhalation R DAILY 12/21/22 10/07/24 History
mcg-vilanterol 25 mcg/dose Lung/Breathing Issues
inhalation powder (Breo Ellipta)
gabapentin 100 mg capsule 100 mg PO HS pain 12/21/22 10/07/24 History
levothyroxine 75 mcg tablet 75 mcg PO DAILY Thyroid 12/21/22 10/07/24 History
montelukast 10 mg tablet 10 mg PO DAILY Allergies 12/21/22 10/07/24 History
(Singulair)
wanlbrwyprza-ohzhekho-naskgx tablet 1 tab PO NOON Supplement 12/21/22 10/07/24 History
omeprazole 20 mg capsule,delayed 20 mg PO DAILY Gastrointestinal 12/21/22 10/07/24 History
release Issue
famotidine 20 mg tablet 20 mg PO HS GI prophylaxis #30 tabs 12/26/22 10/07/24 Rx
acetaminophen 325 mg capsule 650 mg (2 x 325 mg) PO Q4H PRN 01/08/23 10/07/24 Rx
mild pain #30 caps
albuterol sulfate 90 mcg/actuation 1 inh inhalation R Q6HPRN PRN sob 10/07/24 10/07/24 History
aerosol inhaler
calcium 600 mg (as 1 tab PO BID Supplement 10/07/24 10/07/24 History
carbonate)-vitamin D3 10 mcg (400
unit) tablet (Calcium 600 + D(3))
olopatadine 0.2 % eye drops 1 drp BOTH EYES DAILYPRN PRN eye 10/07/24 10/07/24 History
irritation
valsartan 80 mg tablet 80 mg PO DAILY Blood Pressure 10/07/24 10/07/24 History
Review of Systems
-
History Source: Patient and Family
All other systems: Negative unless noted
Constitutional: Reports No Symptoms
EENT: Reports No Symptoms
Respiratory: Reports No Symptoms
Cardiac: Reports No Symptoms
Vascular: Denies Leg Pain / Claudication
Abdomen/GI: Reports No Symptoms
: Reports No Symptoms
Musculoskeletal: Reports No Symptoms
Skin: Reports No Symptoms
Neurological: Reports Other (Slurred speech-resolved)
Endocrine: Reports No Symptoms
Physical Exam
Vital Signs
Temp Pulse Resp BP Pulse Ox
98.8 F 80 18 147/80 96
10/08/24 07:35 10/08/24 07:35 10/08/24 07:35 10/08/24 07:35 10/08/24 07:35
Lab Results
10/08/24 07:02
10/08/24 07:02
Troponin I < 0.012 ng/ml 10/07/24 16:11
Physical Exam
General: No Apparent Distress
HEENT: Normocephalic and Atraumatic
Respiratory: Non Labored Respirations
Cardiac: Negative JVD
GI: Soft, Non Tender and Non Distended
Musculoskeletal: No Clubbing, No Cyanosis and No Edema
Skin: Warm
Neuro: Awake, Alert, Oriented and No Motor Deficits
Psych: Calm
Assessment / Plan
-
79-year-old female with right-sided stroke, questionable right ICA stenosis
Plan:
-MRA, CTA and US all with differing evaluations of carotid stenosis. When evaluated with centerline reconstruction the stenosis does not appear >50%. We do not believe her carotid disease is the culprit to her stroke. We spoke with the patient and
family at length about all of the findings from each scan. Dr Hawkins is reaching out to neurology and primary team to discuss as well.
-Echo pending
-Patient's family would like to pursue cardiology consultation
Data Reviewed
-
CT Scan: Discussed with Patient
Ultrasound: Discussed with Patient
Labs: Labs Reviewed by me
[2024-10-08] MEDS: DIOVAN 80 MG PO (11:25)
[2024-10-08] MEDS: SINGULAIR 10 MG PO (11:25)
[2024-10-08] MEDS: PLAVIX 75 MG PO (11:25)
[2024-10-08] MEDS: OSCAL 500 + D PO ×2 (11:25→11:41)
[2024-10-08] MEDS: PRAVACHOL 40 MG PO (11:25)
[2024-10-08] MEDS: LOW STRENGTH ASPIRIN 81 MG PO (11:25)
[2024-10-08] MEDS: PROTONIX 40 MG PO (11:25)
[2024-10-08] MEDS: THERAGRAN PO (11:41)
--- NOTE | 2024-10-08 13:18 | W.PN.HOSP.TC ---
Today's Communication/Plan
-
PT/OT evaluation
Vascular surg eval
Assessment / Plan
Assessment / Plan
MRI brain
3.0 x 1.9 cm acute, nonhemorrhagic infarct. This is centered in the right centrum semiovale. It extends into the subcortical white matter of posterior right frontal lobe and anterior right parietal lobe. No mass effect related to this infarct
Moderate cerebral atrophy along with chronic small vessel ischemia elsewhere in the cerebral white matter.
MRA neck
1 cm long segment of approximately 60% stenosis just distal to the origin of the right internal carotid artery

1. Right sided CVA
-Patient had slurred speech which can possibly be related to decrease cerebral perfusion versus true CVA
-Speech changes has resolved largely in ER.
-CT head without contrast ruled out hemorrhagic CVA
-MRI brain and MRA head and neck report as above
-Neurology evaluated patient ans help appreciated
-Already on Plavix, started on aspirin 81 mg as well
-Patient have ipsilateral right internal carotid artery stenosis of 60%, vascular surgery consulted for evaluation
2. Syncope
-Patient was found to be slumped over in sofa
-No previous reported history of single
-Patient does not remember any preceding symptoms
-Patient hypertensive in ER, ortho vitals neg.
-Monitor on telemetry
-No reported history of head injury/seziures in the past , monitor.
3. HTN urgency - Improved
-resume back on home BP medication
HLD
Hypothyroidism
Neuropathy
Allergy
Right TKR
Right shoulder replacement
GERD
Osteoporosis
DVT PPX - scd
Full code
Care plan discussed with neurology
Discussed with [id number] at bedside
Total time spent : 52 mins
Anticipated Discharge: 24 - 48 hours
Subjective/Interval History
-
Date of Service: October 08, 2024
Patient's speech slurred
No other deficits
Objective Data
-
Labs:
Laboratory Results
10/08/24
07:02
WBC 6.9
Hgb 11.2 L
Hct 35.2 L
Plt Count 315
Sodium 139
Potassium 4.3
Chloride 103
Carbon Dioxide 24
BUN 9
Creatinine 0.7
Glucose 101 H
Calcium 9.4
Vital Signs:
Vital Signs
Temp Pulse Resp BP Pulse Ox
97.8 F 76 18 153/79 96
10/08/24 11:12 10/08/24 11:12 10/08/24 11:12 10/08/24 11:12 10/08/24 11:12
Review of Systems
-
Respiratory: Reports No Symptoms
Cardiac: Reports No Symptoms
Abdomen/GI: Reports No Symptoms
Physical Exam
-
General: No Apparent Distress and Comfortable
HEENT: Negative Oxygen
Respiratory: Clear to Auscultation
Cardiac: Regular Rhythm and S1/S2; Negative Murmur or Rub
GI: Soft, Nontender, Nondistended and Normal Bowel Sounds
Musculoskeletal: No Edema
Neuro: Awake, Alert, Oriented, Slurred Speech and Facial Droop (left side )
Psych: Calm
--- NOTE | 2024-10-08 14:54 | CM ---
Patient daughter seen with patient at bedside. Patient was admitted as OBS but patient changed today to INP due to CVA per physician. Patient daughter indicated that patient did not speak good indian and all translation done with patient daughter
and family member. patient lives with daughter in 2 story home but has a first floor set up. Patient has a walker at home. Patient PCP is Dr. Paez and she uses the [facility] for medications. Patient with many family members for supports. CM
will continue to follow for discharge planning needs.
Plan; home with family pending medical treatment plan/pt/ot assessment
--- NOTE | 2024-10-08 16:00 | PTOTSP ---
Speech Language Pathology
Pt continues to be off floor. This is 4th attempt this date to see pt. Per RN report, some difficulty initiating swallow, and family reported some pocketing with meals.
If pt is to continue eating/drinking prior to SURVEY RESEARCH MANAGER evaluation, would consider downgrade to IDDSI Level 4 (puree) and thin liquids. If issues with this diet, would consider NPO. SURVEY RESEARCH MANAGER to follow up for evaluation 10/09.
[2024-10-08] MEDS: OSCAL 500 + D 500 MG PO (21:24)
[2024-10-08] MEDS: PEPCID 20 MG PO (21:24)
[2024-10-08] MEDS: NEURONTIN 100 MG PO (21:24)
[2024-10-08] MEDS: LEXAPRO 10 MG PO (21:24)
[2024-10-09] VITALS (8 sets, daily range): BP systolic 107–163; BP diastolic 51–85; PULSE 73–77; O2SAT 98–99
[2024-10-09] MEDS: SYNTHROID 75 MCG PO (06:18)
[2024-10-09] MEDS: SYMBICORT 160/4.5 MCG INHALER 2 PUFF INH ×2 (07:25→20:07)
[2024-10-09] MEDS: PLAVIX 75 MG PO (09:09)
[2024-10-09] MEDS: SINGULAIR 10 MG PO (09:09)
[2024-10-09] MEDS: OSCAL 500 + D 500 MG PO ×2 (09:09→21:27)
[2024-10-09] MEDS: PROTONIX 40 MG PO (09:09)
[2024-10-09] MEDS: DIOVAN 80 MG PO (09:09)
[2024-10-09] MEDS: LOW STRENGTH ASPIRIN 81 MG PO (09:10)
[2024-10-09] MEDS: PRAVACHOL PO (09:25)
--- NOTE | 2024-10-09 09:45 | PTOTSP ---
Speech Language Pathology
VIDEOFLUOROSCOPIC SWALLOWING EXAMINATION (VSE) completed. Mod oral dysphagia characterized by oral holding at times prior to oral manipulation, decreased mastication of regular solids, and oral residue. Inconsistent and incoordinated oral phase
overall. Pt into neck extension for swallow initiation at times. Mild pharyngeal dysphagia. No significant pharyngeal residue noted throughout study. Pt with responsive aspiration of consecutive sips of thin liquids via straw (PAS 7).
Recommend:
(1) IDDSI Level 4 (Puree) and thin liquids
(2) Aspiration precautions: sit upright, full supervision with assist as needed, single sips of liquids only (pinch straw if needed), ensure oral cavity clear post meals
(3) Meds crushed in puree as able
(4) CLAY TEMPERER to continue to follow
--- NOTE | 2024-10-09 09:47 | PTOTSP ---
Dysphagia Evaluation and Speech/Language Evaluation
Patient presents with oral/pharyngeal dysphagia s/p acute right sided CVA. Suspect oral greater than pharyngeal dysphagia with reduced sensation/oral control on the left side resulting in oral residue and coughing with attempts to clear soft solid
residue with liquid washes.
Patient speaks Gujarati. Signs concerning for expressive aphasia (i.e., perseveration, word finding difficulty), dysarthria (imprecision of articulation), and cognitive linguistic changes (i.e., changes to orientation) noted. Further
evaluation/treatment with Gujarati speaking COMMUNICATION PROFESSOR and/or bilingual interpreter would be beneficial.
Recommend:
1. IDDSI Level 4 Puree, IDDSI Level 0 Thin Liquids
2. Medications: crushed in puree
3. Strategies: upright to 90 degrees, PO only when awake/alert, full supervision/assist to use strategies, small sips/bites, alternate sips/bites to assist with oral clearance, suction oral residue post meals
4. Oral care at least 3x daily
5. Video swallow study to objectively assess oral and pharyngeal swallowing.
6. Continued speech, language, cognitive therapy after D/C from acute care.
--- NOTE | 2024-10-09 10:57 | PTCARENOTE ---
Pt here for Echo Bubble Study. Procedure completed per protocol with aseptic technique. Pt tolerated procedure well, no change in status. Left arm 22 G PC IV site utilized, flushed easily pre and post procedure.
--- NOTE | 2024-10-09 11:02 | CM ---
Addendum entered by Sahnia Duncan 10/09/24 14:55:
Per [facility] liaison they are considering patient for saturday. Physician updated.
Addendum entered by Shania Duncan 10/09/24 13:49:
Family now state they want patient to go to [facility] per PT/OT recommendation. CM will request PM&R assessment and update physician, liaison at [facility].
Original Note:
Patient off floor for testing, daughter present and stated patient for PT/OT assessment. CM will continue to follow for discharge planning needs.
Plan; home with family/VN vs SNF pending assessment
[2024-10-09] MEDS: THERAGRAN PO ×2 (11:11→13:14)
[2024-10-09] MEDS: LIPITOR 40 MG PO (11:11)
--- NOTE | 2024-10-09 12:57 | W.PN.NEURO.1 ---
Today's Communication / Plan
-
Aspirin 81 mg to the patient's usual outpatient clopidogrel, for goal of 21 days, then return to clopidogrel 75 mg daily
Neuro Assessment/Plan
Assessment
Abrupt onset of speech change and left hemibody sensory change
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
Patient's MRA of the neck suggesting 60% stenosis of the right internal carotid artery is most likely causative
Plan
Aspirin 81 mg to the patient's usual outpatient clopidogrel, for goal of 21 days, then return to clopidogrel 75 mg daily
Consult vascular surgery due to probable stenosis requiring intervention
Continue pravastatin as LDL is less than 70
Goal of normotension
Continue gabapentin temporarily
Rehabilitation evaluations and treatment
Provide medical educational materials
Will follow as needed
Subjective/Objective
Subjective Data
Date of Service: October 09, 2024
Patient not described as having significant changes
Objective Data
Vital Signs
Temp Pulse Resp BP Pulse Ox
36.6 C 82 18 163/76 98
10/09/24 11:47 10/09/24 11:47 10/09/24 11:47 10/09/24 11:47 10/09/24 11:47
Lab Results
10/08/24 07:02
10/08/24 07:02
PT 13.9 Sec (11.4-14.6) 10/07/24 15:49
INR 1.02 10/07/24 15:49
APTT 32.6 Sec (23.4-35.0) 10/07/24 15:49
Sodium 139 mmol/L (135-145) 10/08/24 07:02
Potassium 4.3 mmol/L (3.5-5.1) 10/08/24 07:02
BUN 9 mg/dl (7-17) 10/08/24 07:02
Glucose 101 mg/dl (70-99) H 10/08/24 07:02
Calcium 9.4 mg/dl (8.4-10.2) 10/08/24 07:02
LDL Cholesterol, Calc 53 mg/dl 10/08/24 07:02
Patient Allergies
No Known Allergies Allergy (Verified 07/25/23 21:02)
Review of Systems
-
History Source: Patient
All other systems: Reviewed and negative
Physical Exam
-
General: No Apparent Distress and Appears Stated Age
Eyes: Round OU, [place] Conjunctivae and No Ptosis
HEENT: Anicteric and Moist Mucous Membranes
Neck: Full Range of Motion
Respiratory: No Dyspnea
Cardiac: No JVD
GI: Non-distended
Skin: Unremarkable
Extremities: No Clubbing, No Cyanosis and No Edema
Extended Neurological Exam
Mood & Affect: Mood Unremarkable and Affect Unremarkable
Attention Span & Concentration: Awake, Alert, Interactive and Unable to Perform 2 Step Request
Tremor: Hand Tremor Absent and Head Tremor Absent
Cranial Nerve II: Left Eye: Pupillary Size Unremarkable and Visual Borges Grossly Intact
Cranial Nerve II: Right Eye: Pupillary Size Unremarkable and Visual Borges Grossly Intact
Cranial Nerves III, IV, : Extraocular Movement: Grossly Intact
Cranial Nerve VII: Facial Symmetry: Normal Facial Symmetry
Cranial Nerve VIII: Hearing: Unremarkable Hearing to Normal Conversational Volume
Cranial Nerve XI: Shoulder Shrug: Unremarkable
Muscle Strength, Overall: Reduced on Left (Leg more than arm); Negative Reduced on Right
Muscle Bulk & Tone: Bulk Unremarkable and Tone Unremarkable
Touch Sensation: Unremarkable
Gait & Station: Other (Unable to ambulate without two-person assist)
Data Reviewed
-
MRI Head: Image Reviewed
Labs: Report Reviewed
Reviewed with: Physician, Patient and Family
Old Records: Summarized
Past History
Past History
ED Past Medical History: HTN, Hypercholesterolemia, Hypothyroidism, Psychiatric (Depression) and Other (Interstitial lung disease, osteoporosis)
ED Past Surgical History: Orthopedic (Al knee replacements, right shoulder surgery, ) and Other (Cataracts)
Social History
Tobacco: Non-smoker
Alcohol: None
Personal:
Living: with family
Employment: Retired
Family History
Family History: Other (Reviewed and noncontributory)
Medications
-
Medications:
Generic Name Dose Route Start Last Admin
Trade Name Freq PRN Reason Stop Dose Admin
Acetaminophen 650 mg 10/07/24 17:58
Acetaminophen 325 Mg Tablet PO 11/04/24 17:57
Q4HPRN PRN
PRINCE, mild pain, or temp >100.4F
Albuterol 1 puff 10/07/24 17:58
Albuterol Hfa [90 Mcg/Dose] Inhaler INH
R Q6HPRN PRN
sob
Protocol
Aspirin 81 mg 10/08/24 08:00 10/09/24 09:10
Aspirin 81 Mg Chewable Tablet PO 11/05/24 07:59 81 mg
DAILY GERMÁN Administration
Atorvastatin Calcium 40 mg 10/09/24 10:00 10/09/24 11:11
Atorvastatin (Lipitor) 40 Mg Tablet PO 11/06/24 09:59 40 mg
DAILY GERMÁN Administration
Budesonide/Formoterol Fumarate 2 puff 10/08/24 08:00 10/09/24 07:25
Symbicort Inhaler 160/4.5 INH 11/05/24 07:59 2 puff
R BID GERMÁN Administration
Calcium/Vitamin D 500 mg 10/07/24 20:00 10/09/24 09:09
Calcium Carbonate 500 Mg/Vitamin D 5 Mcg (200 Units) Tablet PO 11/04/24 19:59 500 mg
BID GERMÁN Administration
Clopidogrel Bisulfate 75 mg 10/08/24 08:00 10/09/24 09:09
Clopidogrel 75 Mg Tablet PO 11/05/24 07:59 75 mg
DAILY GERMÁN Administration
Escitalopram Oxalate 10 mg 10/07/24 22:00 10/08/24 21:24
Escitalopram 10 Mg Tablet PO 11/04/24 21:59 10 mg
HS GERMÁN Administration
Famotidine 20 mg 10/07/24 22:00 10/08/24 21:24
Famotidine 20 Mg Tablet PO 11/04/24 21:59 20 mg
HS GERMÁN Administration
Gabapentin 100 mg 10/07/24 22:00 10/08/24 21:24
Gabapentin 100 Mg Capsule PO 11/04/24 21:59 100 mg
HS GERMÁN Administration
Ketotifen Fumarate 1 drop 10/07/24 18:04
Ketotifen Fumarate (Ophthalmic Solution) Bottle BOTH EYES 11/04/24 18:03
DAILYPRN PRN
eye irritation
Levothyroxine Sodium 75 mcg 10/08/24 06:00 10/09/24 06:18
Levothyroxine 75 Mcg Tablet PO 11/05/24 05:59 75 mcg
DAILY @ 0600 GERMÁN Administration
Montelukast Sodium 10 mg 10/08/24 08:00 10/09/24 09:09
Montelukast Sodium 10 Mg Tablet PO 11/05/24 07:59 10 mg
DAILY GERMÁN Administration
Multivitamins Therapeutic 1 tablet 10/08/24 12:00 10/09/24 11:11
Multivitamin Tablet PO 11/05/24 11:59 1 tablet
NOON GERMÁN Administration
Pantoprazole Sodium 40 mg 10/08/24 08:00 10/09/24 09:09
Pantoprazole 40 Mg Delayed Release Tablet PO 11/05/24 07:59 40 mg
DAILY GERMÁN Administration
Sodium Chloride 0 flush 10/07/24 18:00
Sodium Chloride 0.9% (Flush) Syringe IV 11/04/24 17:59
PER PROTOCOL GERMÁN
Valsartan 80 mg 10/08/24 08:00 10/09/24 09:09
Valsartan 80 Mg Tablet PO 11/05/24 07:59 80 mg
DAILY GERMÁN Administration
--- NOTE | 2024-10-09 13:13 | CON.MD ---
Documented by User: Angela Fulton PA-C 10/09/24 23:04
Consultation - Medical
-
Referring Provider: Dr. Charlie De Leon
Chief Complaint: CVA
History of Present Illness: This is a 79-year-old [place]jar[place] speaking female with PMH of ( hypertension, hyperlipidemia, depression, GERD, osteoporosis, history of right TKR, history of right shoulder replacement) brought to the ED on 10/07 by family
after she was found slumped over on the couch at home and was having trouble speaking. Per patient, she was walking toward the sofa when she felt her left hand go numb and so she sat on the sofa. It appears that she then fell forward striking her
face on the hardwood floor. Following the fall she was alert, although had difficulty speaking. Family states that her speech remains somewhat slurred.
CT scan of Head-10/07: No CT evidence for acute intracranial hemorrhage or transcortical infarct. Moderate white matter leukoaraiosis in both cerebral hemispheres.
MRI Brain-10/08 -03.0 x 1.9 cm acute, nonhemorrhagic infarct. This is centered in the right centrum semiovale. It extends into the subcortical white matter of posterior right frontal lobe and anterior right parietal lobe. No mass effect related to
this infarct. Moderate cerebral atrophy along with chronic small vessel ischemia elsewhere in the cerebral white matter.
Neck MRA-10/08 - 1 cm long segment of approximately 60% stenosis just distal to the origin of the right internal carotid artery. High-grade stenosis (exceeding 80%) at the origin of the right external carotid artery
Patient not a candidate for either tenecteplase or intra-arterial thrombectomy due to NIH stroke scale less than 6
Neurology- Abrupt onset of speech change and left hemibody sensory change. undoubtedly due to newly discovered acute ischemic stroke involving the right centrum semiovale. Patient's MRA of the neck suggesting 60% stenosis of the right internal
carotid artery is most likely causative. Vascular surgery consulted for stenosis requiring intervention.
Vascular surgery:The degree of stenosis in the right internal carotid artery is less than 50% and I do not suspect this is the most likely culprit for stroke. There is tortuosity of the right ICA just distal to the calcified plaque which can lead to
distal embolization/stroke, however this diagnosis is less certain at this point. Recommend continuing workup with TTE and cardiology evaluation given the uncertainty with the right ICA as the culprit for stroke.
If after the workup is completed the consensus is that the carotid tortuosity represents the most likely etiology for her stroke then carotid surgery may be indicated on this admission.
Echo:10/09- Normal left ventricular size, wall thickness and systolic function. LV ejection fraction is 55-60% by visual assessment. Stage I diastolic dysfunction suggestive of abnormal relaxation
Past Medical History: Hypertension, hyperlipidemia, depression, GERD, osteoporosis, history of right TKR, history of right shoulder replacement
Procedure History: right TKR, right shoulder replacement
Family History: denies
Social History:
Functional Level Premorbidly: Independent with all activities , owns cane and RW
Functional Level Currently: bed mobility�min assist, transfer sit to stand�mod assist, stand to sit�mod assist,Ambulates 20 feet with mod assist x 2 via hand-held assistance. Ambulated with step to gait pattern with difficulty advancing the left
lower extremity in swing phase requiring weight shifting assistance, Toileting�dependent, upper extremity self-care�max assist,
Tobacco: Denies
Alcohol: Denies
Drug use: Denies
Lives with: Family
24-hour assistance available: Most of the time someone is home.
Number of floors:
# steps to enter: 2
# steps to second floor:
Potential First floor set up: yes, bathroom and bedroom
Driving: no
Occupation: retired
Allergies:
Allergy/AdvReac Type Severity Reaction Status Date / Time
No Known Allergies Allergy Verified 07/25/23 21:02
Review of Systems:
Constitutional: (x) Normal _
Eye: (x) Normal _
Ear/Nose/Throat: (x) Normal _
Respiratory: (x) Normal _
Cardiovascular: (x) HTN
Gastrointestinal: (x) Normal _
Genitourinary: (x) Normal _
Musculoskeletal: (x) left weakness,
Integumentary: (x) Normal _
Neurologic: (x) CVA, aphasia
Psychiatric: (x) depression
Endocrine: (x) Normal _
Hematologic/Lymphatic: (x) Normal _
Allergic/Immunologic: (x) Normal _
Medications:
Active Current Visit Medication List
Category Date Time Status
Acetaminophen [Tylenol] Med 10/07/24 17:58 Active
650 mg PO Q4HPRN PRN
Albuterol [ProAIR HFA INHALER] Med 10/07/24 17:58 Active
1 puff INH R Q6HPRN PRN
Aspirin Chewable [Low Strength Aspirin] Med 10/08/24 08:00 Active
81 mg PO DAILY
Atorvastatin [Lipitor] Med 10/09/24 10:00 Active
40 mg PO DAILY
Budesonide/Formoterol 160/4.5 [Symbicort 160/4.5 Mcg Med 10/08/24 08:00 Active
Inhaler]
2 puff INH R BID
Calcium Carbonate/Vitamin D3 [Oscal 500 + D] Med 10/07/24 20:00 Active
500 mg PO BID
Clopidogrel Bisulfate [Plavix] Med 10/08/24 08:00 Active
75 mg PO DAILY
Escitalopram Oxalate [Lexapro] Med 10/07/24 22:00 Active
10 mg PO HS
Famotidine [Pepcid] Med 10/07/24 22:00 Active
20 mg PO HS
Flush (0.9% Sodium Chloride) [Flush (Nss)] Med 10/07/24 18:00 Active
See Dose Instructions IV PER PROTOCOL
Gabapentin [Neurontin] Med 10/07/24 22:00 Active
100 mg PO HS
Ketotifen Fumarate [Zaditor] Med 10/07/24 18:04 Active
1 drop BOTH EYES DAILYPRN PRN
Levothyroxine [Synthroid] Med 10/08/24 06:00 Active
75 mcg PO DAILY @ 0600
Montelukast Sodium [Singulair] Med 10/08/24 08:00 Active
10 mg PO DAILY
Multivitamin [Theragran] Med 10/08/24 12:00 Active
1 tablet PO NOON
NIFEdipine EXTENDED RELEASE [Procardia Xl (Extended Med 10/09/24 14:00 Active
Release)]
30 mg PO DAILY
Pantoprazole [Protonix] Med 10/08/24 08:00 Active
40 mg PO DAILY
Valsartan [Diovan] Med 10/08/24 08:00 Active
80 mg PO DAILY
Vitals:
Temp Pulse Resp BP Pulse Ox
98 F 82 18 163/76 98
10/09/24 11:47 10/09/24 11:47 10/09/24 11:47 10/09/24 11:47 10/09/24 11:47
Height 5 ft 1 in
Actual Weight 53.07 kg
Body Mass Index (BMI) 22.1
Physical Exam:
General Appearance/Observation: Well-developed, well-nourished individual in no apparent distress.
Pain/Comfort Assessment: Denies
Mood/Affect: Appropriate
Integumentary/Operative Site:
Pressure Ulcer Evaluation: absent over heels.
Other Type of Wound: Bruise- left orbit
Eyes: Conjunctiva/Lids: normal Pupils: pupils equal round and reactive to light and Accommodation
Ears/Nose/Throat: oral mucosa moist, throat clear. Lips/Teeth/Gums: normal
Neck: No muscle spasm or tenderness
Cardiovascular: Heart: regular, no murmur
Pulses: dorsalis pedis 2+ bilaterally
Respiratory: Respiratory Effort/Chest Expansion: normal Auscultation: Clear to auscultation bilaterally
Gastrointestinal: abdomen not tender, no distension, normal abdominal bowel sounds
Genitourinary: No Hawkins
Extremities: Edema: None Cyanosis: None Trophic changes: None
Neurology Exam:
Orientation: Alert, oriented to self
Memory: impaired
Comprehension: Impaired
Two step command: impaired
Naming: aphasia
Cranial Nerves:
CNII: Pupillary light reflex: Intact Visual Field: NT
CN III, IV, : Extraocular muscles: Intact
CN V: Facial Sensation at Forehead: Intact, Maxilla: Intact, Mandible: Intact
CN VII: Facial movement: Symmetric
CN VIII: Hearing: Normal
CN IX/X: Speech & swallow: aphasia, verbiage does not make sense Position of Uvula: Midline
CN XI: Shoulder shrug: Symmetric
CN XII: Tongue protrusion: Midline
Sensory:
Light touch: grossly intact
Reflexes:
Biceps: 2+ bilaterally
Brachioradialis: 2+ bilaterally
Triceps: 2+ bilaterally
Patellar: 2+ bilaterally
Achilles: 2+ bilaterally
Babinski: upward going on right, no response on left
Clonus: None
Sunil: Negative bilaterally
Cerebellar: Dysmetria/Ataxia: too weak on the left to test, unable to assess the right due to patient not following command. squeezes her nose instead.
Musculoskeletal:
Motor: (Manual muscle scale 0-5)
LUE: 2/5 all muscle groups
RUE: 5/5 all muscle groups
LLE: 2/5 all muscle groups
RLE: 5/5 all muscle groups
Tone: Normal in all extremities , some rigidity in left ankle, difficult to relax
Range of Motion: Passively within normal limits in all extremities
Lab Results
Labs
WBC 6.9 10^3/uL (4.8-10.8) 10/08/24 07:02
RBC 4.49 10^6/uL (4.20-5.40) 10/08/24 07:02
Hgb 11.2 g/dL (12.0-16.0) L 10/08/24 07:02
Hct 35.2 % (37.0-47.0) L 10/08/24 07:02
MCV 78.4 fL (81.0-99.0) L 10/08/24 07:02
MCH 24.9 pg (27.0-31.0) L 10/08/24 07:02
MCHC 31.8 g/dL (33.0-37.0) L 10/08/24 07:02
RDW 18.1 % (11.5-14.5) H 10/08/24 07:02
Plt Count 315 10^3/uL (130-400) 10/08/24 07:02
MPV 11.4 fL (7.4-10.4) H 10/08/24 07:02
Abs Immat Gran (auto) 0.0 10^3/uL (0-0.05) 10/07/24 15:14
Absolute Neuts (auto) 5.7 10^3/uL (1.4-6.5) 10/07/24 15:14
Absolute Lymphs (auto) 1.9 10^3/uL (1.2-3.4) 10/07/24 15:14
Absolute Monos (auto) 0.8 10^3/uL (0.1-0.6) H 10/07/24 15:14
Absolute Eos (auto) 0.1 10^3/uL (0-0.7) 10/07/24 15:14
Absolute Basos (auto) 0.1 10^3/uL (0-0.2) 10/07/24 15:14
Immature Gran % 0.5 % (0-0.5) 10/07/24 15:14
Neutrophils % 66.3 % (42.2-75.2) 10/07/24 15:14
Lymphocytes % 22.0 % (20.5-51.1) 10/07/24 15:14
Monocytes % 9.2 % (1.7-9.3) 10/07/24 15:14
Eosinophils % 1.3 % (0-6) 10/07/24 15:14
Basophils % 0.7 % (0-2) 10/07/24 15:14
Nucleated RBC % 0 % 10/07/24 15:14
PT 13.9 Sec (11.4-14.6) 10/07/24 15:49
INR 1.02 10/07/24 15:49
APTT 32.6 Sec (23.4-35.0) 10/07/24 15:49
Sodium 139 mmol/L (135-145) 10/08/24 07:02
Potassium 4.3 mmol/L (3.5-5.1) 10/08/24 07:02
Chloride 103 mmol/L (98-107) 10/08/24 07:02
Carbon Dioxide 24 mmol/L (22-30) 10/08/24 07:02
BUN 9 mg/dl (7-17) 10/08/24 07:02
Creatinine 0.7 mg/dL (0.6-1.0) 10/08/24 07:02
Estimated Creat Clear 48 ml/min 10/08/24 07:02
eGFR > 60.00 10/08/24 07:02
Glucose 101 mg/dl (70-99) H 10/08/24 07:02
Hemoglobin A1c 5.6 % (4.0-5.6) 10/08/24 07:02
Calcium 9.4 mg/dl (8.4-10.2) 10/08/24 07:02
Total Bilirubin Cancelled 10/07/24 15:14
AST Cancelled 10/07/24 15:14
ALT Cancelled 10/07/24 15:14
Alkaline Phosphatase Cancelled 10/07/24 15:14
Troponin I < 0.012 ng/ml 10/07/24 16:11
Total Protein Cancelled 10/07/24 15:14
Albumin Cancelled 10/07/24 15:14
Triglycerides 79 mg/dl (10-149) 10/08/24 07:02
Total Cholesterol 135 mg/dl (50-199) 10/08/24 07:02
LDL Cholesterol, Calc 53 mg/dl 10/08/24 07:02
VLDL Cholesterol, Calc 15 mg/dl (0-30) 10/08/24 07:02
HDL Cholesterol 67 mg/dl 10/08/24 07:02
Diagnostic Results: as per HPI
Assessment: 79-year-old [place]jar[place] speaking female with PMH of ( hypertension, hyperlipidemia, depression, GERD, osteoporosis, history of right TKR, history of right shoulder replacement) With left-sided hemiparesis, inattention and neglect and
aphasia found to have right-sided Acute, none hemorrhaging infarct in the right centrum semiovale with extension to right frontal lobe and anterior right parietal lobe
Plan
PT/OT to increase independence with ADLs, improve balance, coordination, endurance, strength, mobility, community reintegration, decreased burden of care on others and family education.
CVA: neuro - added Aspirin 81 mg to patient's outpatient clopidogrel, for goal of 21 days, then return to clopidogrel 75 mg daily ((SBP less than 180 and diastolic less than 100 to participate with therapy for ischemic stroke). Continue to monitor
neurologic status.)
Left hemiparesis: High risk for falls and sliding out of chair/bed. Safety reinforced.
- Avoid using affected arm to help lift or pull patient as this will cause trauma to the shoulder.
Left inattention/Neglect: makes patient at increased risk for falls. Will need therapy to work on scanning of environment for safe navigation.
Dysphagia: speech evaluation, oral care protocol, aspiration precautions. Advance diet as tolerated. Currently on puree/thin liquids pending official video swallow study.
Aphasia: expressive and some switchboard receptionist. speech evaluation.
HTN: Nifedipine extended release 30 mg daily, Valsartan 80 mg daily. monitor closely
HLD: Atorvastatin 40 mg daily
Hypothyroid:75 mcg daily
Asthma: Singular 10 mg daily, Symbicort 160/4.5 mcg 2 puff twice daily, Albuterol 1 puff every 6 hours as needed
Anemia: Likely multifactorial. Continue to monitor.
Psych: Psychology consult. Lexapro 10 mg at bedtime, adjust medications as needed.
Skin: monitor for pressure sores/rashes/lesions.
Pain: acetaminophen as needed, Gabapentin 100 mg at bedtime
Bowel: Colace and Senna, PRN bisacodyl.
Bladder: Time void, PVRs, PRN straight cath.
GI Prophylaxis: Pantoprazole 40mg qd, Pepcid 20 at bedtime.
DVT Prophylaxis: Mechanical. Add Heparin or lovenox if no contraindications
Pulmonary: Incentive spirometry
Safety: Continue to reinforce assistance with all transfers.
Code Status: Full code
Dispo (date/plan/equipment needs): Home with family care. Social history reviewed.
Functional and Medical Goals: Modified Independent with ADL�s, ambulation, transfers
Discharge Destination: Acute inpatient when medically stable
Summary of recommendations: Patient with right side infarct associated left hemiparesis, aphasia, dysphagia previously independent and now with ambulatory dysfunction and impairment of ADL would benefit from PT/OT to increase independence with ADLs,
improve balance, coordination, endurance, strength, mobility, community reintegration, decreased burden of care on others and family education once evaluated by cardiology, all requested testings have been completed and medically stable.
CVA: neuro - added Aspirin 81 mg to patient's outpatient clopidogrel, for goal of 21 days, then return to clopidogrel 75 mg daily (
Left hemiparesis: High risk for falls and sliding out of chair/bed. Safety reinforced.
- Avoid using affected arm to help lift or pull patient as this will cause trauma to the shoulder.
Left inattention/Neglect: makes patient at increased risk for falls. Will need therapy to work on scanning of environment for safe navigation.
Bowel: Colace and Senna, PRN bisacodyl.
Bladder: Time void, PVRs, PRN straight cath.
GI Prophylaxis: Pantoprazole 40mg qd, Pepcid 20 at bedtime.
DVT Prophylaxis: Mechanical. Add Heparin or lovenox if no contraindications
Pulmonary: Incentive spirometry
Safety: Continue to reinforce assistance with all transfers.
Thank you for allowing me to care for your patient. Please contact me with any questions or concerns.

Documented by User: Ezekiel Stein MD 10/10/24 09:23
Consultation - Medical
-
Referring Provider: Dr. Charlie De Leon
Chief Complaint: CVA
History of Present Illness: This is a 79-year-old [place]jar[place] speaking female with PMH of ( hypertension, hyperlipidemia, depression, GERD, osteoporosis, history of right TKR, history of right shoulder replacement) brought to the ED on 10/07 by family
after she was found slumped over on the couch at home and was having trouble speaking. Per patient, she was walking toward the sofa when she felt her left hand go numb and so she sat on the sofa. It appears that she then fell forward striking her
face on the hardwood floor. Following the fall she was alert, although had difficulty speaking. Family states that her speech remains somewhat slurred.
CT scan of Head-10/07: No CT evidence for acute intracranial hemorrhage or transcortical infarct. Moderate white matter leukoaraiosis in both cerebral hemispheres.
MRI Brain-10/08 -03.0 x 1.9 cm acute, nonhemorrhagic infarct. This is centered in the right centrum semiovale. It extends into the subcortical white matter of posterior right frontal lobe and anterior right parietal lobe. No mass effect related to
this infarct. Moderate cerebral atrophy along with chronic small vessel ischemia elsewhere in the cerebral white matter.
Neck MRA-10/08 - 1 cm long segment of approximately 60% stenosis just distal to the origin of the right internal carotid artery. High-grade stenosis (exceeding 80%) at the origin of the right external carotid artery
Patient not a candidate for either tenecteplase or intra-arterial thrombectomy due to NIH stroke scale less than 6
Neurology- Abrupt onset of speech change and left hemibody sensory change. undoubtedly due to newly discovered acute ischemic stroke involving the right centrum semiovale. Patient's MRA of the neck suggesting 60% stenosis of the right internal
carotid artery is most likely causative. Vascular surgery consulted for stenosis requiring intervention.
Vascular surgery:The degree of stenosis in the right internal carotid artery is less than 50% and I do not suspect this is the most likely culprit for stroke. There is tortuosity of the right ICA just distal to the calcified plaque which can lead to
distal embolization/stroke, however this diagnosis is less certain at this point. Recommend continuing workup with TTE and cardiology evaluation given the uncertainty with the right ICA as the culprit for stroke.
If after the workup is completed the consensus is that the carotid tortuosity represents the most likely etiology for her stroke then carotid surgery may be indicated on this admission.
Echo:10/09- Normal left ventricular size, wall thickness and systolic function. LV ejection fraction is 55-60% by visual assessment. Stage I diastolic dysfunction suggestive of abnormal relaxation
Past Medical History: Hypertension, hyperlipidemia, depression, GERD, osteoporosis, history of right TKR, history of right shoulder replacement
Procedure History: right TKR, right shoulder replacement
Family History: denies
Social History:
Functional Level Premorbidly: Independent with all activities , owns cane and RW
Functional Level Currently: bed mobility�min assist, transfer sit to stand�mod assist, stand to sit�mod assist,Ambulates 20 feet with mod assist x 2 via hand-held assistance. Ambulated with step to gait pattern with difficulty advancing the left
lower extremity in swing phase requiring weight shifting assistance, Toileting�dependent, upper extremity self-care�max assist,
Tobacco: Denies
Alcohol: Denies
Drug use: Denies
Lives with: Family
24-hour assistance available: Most of the time someone is home.
Number of floors: 2
# steps to enter: 2
# steps to second floor:
Potential First floor set up: yes, bathroom and bedroom
Driving: no
Occupation: retired
Allergies:
Allergy/AdvReac Type Severity Reaction Status Date / Time
No Known Allergies Allergy Verified 07/25/23 21:02
Review of Systems: Limited with aphasia (used language interpreter)
Constitutional: (x) Normal _
Eye: (x) Normal _
Ear/Nose/Throat: (x) Normal _
Respiratory: (x) Normal _
Cardiovascular: (x) HTN
Gastrointestinal: (x) Normal _
Genitourinary: (x) Normal _
Musculoskeletal: (x) left weakness,
Integumentary: (x) Normal _
Neurologic: (x) CVA, aphasia
Psychiatric: (x) depression
Endocrine: (x) Normal _
Hematologic/Lymphatic: (x) Normal _
Allergic/Immunologic: (x) Normal _
Medications:
Active Current Visit Medication List
Category Date Time Status
Acetaminophen [Tylenol] Med 10/07/24 17:58 Active
650 mg PO Q4HPRN PRN
Albuterol [ProAIR HFA INHALER] Med 10/07/24 17:58 Active
1 puff INH R Q6HPRN PRN
Aspirin Chewable [Low Strength Aspirin] Med 10/08/24 08:00 Active
81 mg PO DAILY
Atorvastatin [Lipitor] Med 10/09/24 10:00 Active
40 mg PO DAILY
Budesonide/Formoterol 160/4.5 [Symbicort 160/4.5 Mcg Med 10/08/24 08:00 Active
Inhaler]
2 puff INH R BID
Calcium Carbonate/Vitamin D3 [Oscal 500 + D] Med 10/07/24 20:00 Active
500 mg PO BID
Clopidogrel Bisulfate [Plavix] Med 10/08/24 08:00 Active
75 mg PO DAILY
Escitalopram Oxalate [Lexapro] Med 10/07/24 22:00 Active
10 mg PO HS
Famotidine [Pepcid] Med 10/07/24 22:00 Active
20 mg PO HS
Flush (0.9% Sodium Chloride) [Flush (Nss)] Med 10/07/24 18:00 Active
See Dose Instructions IV PER PROTOCOL
Gabapentin [Neurontin] Med 10/07/24 22:00 Active
100 mg PO HS
Ketotifen Fumarate [Zaditor] Med 10/07/24 18:04 Active
1 drop BOTH EYES DAILYPRN PRN
Levothyroxine [Synthroid] Med 10/08/24 06:00 Active
75 mcg PO DAILY @ 0600
Montelukast Sodium [Singulair] Med 10/08/24 08:00 Active
10 mg PO DAILY
Multivitamin [Theragran] Med 10/08/24 12:00 Active
1 tablet PO NOON
NIFEdipine EXTENDED RELEASE [Procardia Xl (Extended Med 10/09/24 14:00 Active
Release)]
30 mg PO DAILY
Pantoprazole [Protonix] Med 10/08/24 08:00 Active
40 mg PO DAILY
Valsartan [Diovan] Med 10/08/24 08:00 Active
80 mg PO DAILY
Vitals:
Temp Pulse Resp BP Pulse Ox
98 F 82 18 163/76 98
10/09/24 11:47 10/09/24 11:47 10/09/24 11:47 10/09/24 11:47 10/09/24 11:47
Height 5 ft 1 in
Actual Weight 53.07 kg
Body Mass Index (BMI) 22.1
Physical Exam:
General Appearance/Observation: Well-developed, well-nourished female in no apparent distress.
Pain/Comfort Assessment: Denies
Mood/Affect: Appropriate
Integumentary/Operative Site:
Pressure Ulcer Evaluation: absent over heels.
Other Type of Wound: Bruise- left orbit
Eyes: Conjunctiva/Lids: normal Pupils: pupils equal round and reactive to light and Accommodation
Ears/Nose/Throat: oral mucosa moist, throat clear. Lips/Teeth/Gums: normal
Neck: No muscle spasm or tenderness
Cardiovascular: Heart: regular, no murmur
Pulses: dorsalis pedis 2+ bilaterally
Respiratory: Respiratory Effort/Chest Expansion: normal Auscultation: Clear to auscultation bilaterally
Gastrointestinal: abdomen not tender, no distension, normal abdominal bowel sounds
Genitourinary: No Hawkins
Extremities: Edema: None Cyanosis: None Trophic changes: None
Neurology Exam:
Orientation: Alert, unable to assess with aphasia
Memory: impaired
Comprehension: Impaired
Two step command: impaired
Naming: aphasia
Cranial Nerves:
CNII: Pupillary light reflex: Intact Visual Field: NT
CN III, IV, : Extraocular muscles: Intact
CN V: Facial Sensation unable to assess with aphasia
CN VII: Facial movement: Symmetric
CN VIII: Hearing: Normal
CN IX/X: Speech & swallow: aphasia, verbiage does not make sense Position of Uvula: Midline
CN XI: Shoulder shrug: Symmetric
CN XII: Tongue protrusion: Midline
Sensory:
Light touch: grossly intact
Reflexes:
Biceps: 2+ bilaterally
Brachioradialis: 2+ bilaterally
Triceps: 2+ bilaterally
Patellar: 2+ bilaterally
Achilles: 2+ bilaterally
Babinski: upward going on right, no response on left
Clonus: None
Sunil: Negative bilaterally
Cerebellar: Dysmetria/Ataxia: too weak on the left to test, unable to assess the right due to patient not following command. squeezes her nose instead.
Musculoskeletal:
Motor: (Manual muscle scale 0-5)
LUE: 2/5 all muscle groups
RUE: 5/5 all muscle groups
LLE: 2/5 all muscle groups
RLE: 5/5 all muscle groups
Tone: Normal in all extremities , some rigidity in left ankle, difficult to relax
Range of Motion: Passively within normal limits in all extremities
Lab Results
Labs
WBC 6.9 10^3/uL (4.8-10.8) 10/08/24 07:02
RBC 4.49 10^6/uL (4.20-5.40) 10/08/24 07:02
Hgb 11.2 g/dL (12.0-16.0) L 10/08/24 07:02
Hct 35.2 % (37.0-47.0) L 10/08/24 07:02
MCV 78.4 fL (81.0-99.0) L 10/08/24 07:02
MCH 24.9 pg (27.0-31.0) L 10/08/24 07:02
MCHC 31.8 g/dL (33.0-37.0) L 10/08/24 07:02
RDW 18.1 % (11.5-14.5) H 10/08/24 07:02
Plt Count 315 10^3/uL (130-400) 10/08/24 07:02
MPV 11.4 fL (7.4-10.4) H 10/08/24 07:02
Abs Immat Gran (auto) 0.0 10^3/uL (0-0.05) 10/07/24 15:14
Absolute Neuts (auto) 5.7 10^3/uL (1.4-6.5) 10/07/24 15:14
Absolute Lymphs (auto) 1.9 10^3/uL (1.2-3.4) 10/07/24 15:14
Absolute Monos (auto) 0.8 10^3/uL (0.1-0.6) H 10/07/24 15:14
Absolute Eos (auto) 0.1 10^3/uL (0-0.7) 10/07/24 15:14
Absolute Basos (auto) 0.1 10^3/uL (0-0.2) 10/07/24 15:14
Immature Gran % 0.5 % (0-0.5) 10/07/24 15:14
Neutrophils % 66.3 % (42.2-75.2) 10/07/24 15:14
Lymphocytes % 22.0 % (20.5-51.1) 10/07/24 15:14
Monocytes % 9.2 % (1.7-9.3) 10/07/24 15:14
Eosinophils % 1.3 % (0-6) 10/07/24 15:14
Basophils % 0.7 % (0-2) 10/07/24 15:14
Nucleated RBC % 0 % 10/07/24 15:14
PT 13.9 Sec (11.4-14.6) 10/07/24 15:49
INR 1.02 10/07/24 15:49
APTT 32.6 Sec (23.4-35.0) 10/07/24 15:49
Sodium 139 mmol/L (135-145) 10/08/24 07:02
Potassium 4.3 mmol/L (3.5-5.1) 10/08/24 07:02
Chloride 103 mmol/L (98-107) 10/08/24 07:02
Carbon Dioxide 24 mmol/L (22-30) 10/08/24 07:02
BUN 9 mg/dl (7-17) 10/08/24 07:02
Creatinine 0.7 mg/dL (0.6-1.0) 10/08/24 07:02
Estimated Creat Clear 48 ml/min 10/08/24 07:02
eGFR > 60.00 10/08/24 07:02
Glucose 101 mg/dl (70-99) H 10/08/24 07:02
Hemoglobin A1c 5.6 % (4.0-5.6) 10/08/24 07:02
Calcium 9.4 mg/dl (8.4-10.2) 10/08/24 07:02
Total Bilirubin Cancelled 10/07/24 15:14
AST Cancelled 10/07/24 15:14
ALT Cancelled 10/07/24 15:14
Alkaline Phosphatase Cancelled 10/07/24 15:14
Troponin I < 0.012 ng/ml 10/07/24 16:11
Total Protein Cancelled 10/07/24 15:14
Albumin Cancelled 10/07/24 15:14
Triglycerides 79 mg/dl (10-149) 10/08/24 07:02
Total Cholesterol 135 mg/dl (50-199) 10/08/24 07:02
LDL Cholesterol, Calc 53 mg/dl 10/08/24 07:02
VLDL Cholesterol, Calc 15 mg/dl (0-30) 10/08/24 07:02
HDL Cholesterol 67 mg/dl 10/08/24 07:02
Diagnostic Results: as per HPI
Assessment: 79-year-old Gujarati speaking female with PMH of ( hypertension, hyperlipidemia, depression, GERD, osteoporosis, history of right TKR, history of right shoulder replacement) With left-sided hemiparesis, inattention and neglect and
aphasia found to have right-sided Acute, none hemorrhaging infarct in the right centrum semiovale with extension to right frontal lobe and anterior right parietal lobe
Plan
PT/OT to increase independence with ADLs, improve balance, coordination, endurance, strength, mobility, community reintegration, decreased burden of care on others and family education.
CVA: neuro - added Aspirin 81 mg to patient's outpatient clopidogrel, for goal of 21 days, then return to clopidogrel 75 mg daily ((SBP less than 180 and diastolic less than 100 to participate with therapy for ischemic stroke). Continue to monitor
neurologic status.)
Left hemiparesis: High risk for falls and sliding out of chair/bed. Safety reinforced.
- Avoid using affected arm to help lift or pull patient as this will cause trauma to the shoulder.
Left inattention/Neglect: makes patient at increased risk for falls. Will need therapy to work on scanning of environment for safe navigation.
Dysphagia: speech evaluation, oral care protocol, aspiration precautions. Advance diet as tolerated. Currently on puree/thin liquids pending official video swallow study.
Aphasia: expressive and some switchboard receptionist. speech evaluation.
HTN: Nifedipine extended release 30 mg daily, Valsartan 80 mg daily. monitor closely
HLD: Atorvastatin 40 mg daily
Hypothyroid: levothyroxine 75 mcg daily
Asthma: Singular 10 mg daily, Symbicort 160/4.5 mcg 2 puff twice daily, Albuterol 1 puff every 6 hours as needed
Anemia: Likely multifactorial. Continue to monitor.
Psych: Psychology consult. Lexapro 10 mg at bedtime, adjust medications as needed.
Skin: monitor for pressure sores/rashes/lesions.
Pain: acetaminophen as needed, Gabapentin 100 mg at bedtime
Bowel: Colace and Senna, PRN bisacodyl.
Bladder: Time void, PVRs, PRN straight cath.
GI Prophylaxis: Pantoprazole 40mg qd, Pepcid 20 at bedtime.
DVT Prophylaxis: Mechanical. Add Heparin or lovenox if no contraindications
Pulmonary: Incentive spirometry
Safety: Continue to reinforce assistance with all transfers.
Code Status: Full code
Dispo (date/plan/equipment needs): Home with family care. Social history reviewed.
Functional and Medical Goals: Modified Independent with ADL�s, ambulation, transfers
Discharge Destination: Acute inpatient when medically stable
Summary of recommendations: Patient with right side infarct associated left hemiparesis, aphasia, dysphagia previously independent and now with ambulatory dysfunction and impairment of ADL would benefit from PT/OT to increase independence with ADLs,
improve balance, coordination, endurance, strength, mobility, community reintegration, decreased burden of care on others and family education once evaluated by cardiology, all requested testings have been completed and medically stable.
CVA: neuro - added Aspirin 81 mg to patient's outpatient clopidogrel, for goal of 21 days, then return to clopidogrel 75 mg daily (
Left hemiparesis: High risk for falls and sliding out of chair/bed. Safety reinforced.
- Avoid using affected arm to help lift or pull patient as this will cause trauma to the shoulder.
Left inattention/Neglect: makes patient at increased risk for falls. Will need therapy to work on scanning of environment for safe navigation.
Bowel: Colace and Senna, PRN bisacodyl.
Bladder: Time void, PVRs, PRN straight cath.
GI Prophylaxis: Pantoprazole 40mg qd, Pepcid 20 at bedtime.
DVT Prophylaxis: Mechanical. Add Heparin or lovenox if no contraindications
Pulmonary: Incentive spirometry
Safety: Continue to reinforce assistance with all transfers.
Attending Statement: Late entry secondary to difficulties accessing computer
I saw and examined the patient 10/09/2024. Reviewed care plan with patient, therapy, nursing, and physician malt specifications control assistant. I agree with the above subjective and physical exam, and plan as documented by HERVE Fulton with adjustments made as necessary.
Thank you for allowing me to care for your patient. Please contact me with any questions or concerns.
[2024-10-09] MEDS: PROCARDIA XL (EXTENDED RELEASE) 30 MG PO (13:16)
--- NOTE | 2024-10-09 13:32 | CON.CAR ---
Addendum entered and electronically signed by Travis Meza MD 10/09/24 16:28:
I saw and examined the patient.
The SURVEYING CREW STAKE RUNNER's note was reviewed and I agree with the note.
Comment: 79-year-old female (known to Dr. Maciel, her primary project scheduler), with hypertension, dyslipidemia, LBBB, nonobstructive coronary artery disease, renal artery atherosclerosis (on clopidogrel), COPD, osteoporosis, and arthritis presented
yesterday after an unresponsive episode at home. She has had a CVA and we were consulted for cardiology eval. It appears that she had a brief episode of AF on telemetry and would recommend anticoagulation for this.
Paroxysmal AF
- DAPT with Eliquis
- Metop XL 25 mg daily
We will be available as needed and will schedule follow up as outpatient.
Original Note:
Consultation
Consultation Request
Date/Time Consultation Requested: 10/09/2024 12:55
Date/Time Consultation Performed: 10/09/2024 13:25
Requesting Provider: Dr. Moises Guerra
Performing Provider: EDSON Shetty for Dr. Meza
Reason for Consultation: CVA
Medical History
-
Chief Complaint: Unresponsive
History of Present Illness:
Fabio Guerra is an 79-year-old female (known to Dr. Maciel, her primary project scheduler), with hypertension, dyslipidemia, LBBB, nonobstructive coronary artery disease, renal artery atherosclerosis (on clopidogrel), COPD, osteoporosis, and arthritis
presented yesterday after an unresponsive episode at home. She was unwitnessed for 20-30 minutes and was found slumped over on the couch with a bruise to her face. The patient's family could not understand what she was saying. Brain MRI confirmed
CVA. Echocardiogram unrevealing. Cardiology has been asked to consult per the family request. The patient is feeling well without chest pain and shortness of breath.
The patient does not speak Kinyarwanda. Her son and grandson are at the bedside. Her daughter was available via telephone. She is a physician.
Past Medical History
Past Medical History: CAD, COPD, HTN, Hypercholesterolemia and Other (Renal artery atherosclerosis)
Past Surgical History: Orthopedic
Social History
Tobacco: Non-Smoker
Living: With Family
Employment: Retired
Family History
Family History: Reviewed & Not Pertinent
Allergies / Home Medications
Allergy/AdvReac Type Severity Reaction Status Date / Time
No Known Allergies Allergy Verified 07/25/23 21:02
�Medication �Instructions �Recorded �Confirmed �Type
clopidogrel 75 mg tablet 75 mg PO DAILY Blood Clot 08/01/18 10/07/24 History
Prevention/Tx
pravastatin 40 mg tablet 40 mg PO DAILY High Cholesterol 08/01/18 10/07/24 History
alendronate 70 mg tablet (Fosamax) 70 mg PO BRISCOE osteoporosis 12/21/22 10/07/24 History
escitalopram oxalate 10 mg tablet 10 mg PO HS depression/anxiety 12/21/22 10/07/24 History
(Lexapro)
fluticasone furoate 200 1 inh inhalation R DAILY 12/21/22 10/07/24 History
mcg-vilanterol 25 mcg/dose Lung/Breathing Issues
inhalation powder (Breo Ellipta)
gabapentin 100 mg capsule 100 mg PO HS pain 12/21/22 10/07/24 History
levothyroxine 75 mcg tablet 75 mcg PO DAILY Thyroid 12/21/22 10/07/24 History
montelukast 10 mg tablet 10 mg PO DAILY Allergies 12/21/22 10/07/24 History
(Singulair)
ozmklrjjaypj-opusvdyi-hhxfsr tablet 1 tab PO NOON Supplement 12/21/22 10/07/24 History
omeprazole 20 mg capsule,delayed 20 mg PO DAILY Gastrointestinal 12/21/22 10/07/24 History
release Issue
famotidine 20 mg tablet 20 mg PO HS GI prophylaxis #30 tabs 12/26/22 10/07/24 Rx
acetaminophen 325 mg capsule 650 mg (2 x 325 mg) PO Q4H PRN 01/08/23 10/07/24 Rx
mild pain #30 caps
albuterol sulfate 90 mcg/actuation 1 inh inhalation R Q6HPRN PRN sob 10/07/24 10/07/24 History
aerosol inhaler
calcium 600 mg (as 1 tab PO BID Supplement 10/07/24 10/07/24 History
carbonate)-vitamin D3 10 mcg (400
unit) tablet (Calcium 600 + D(3))
olopatadine 0.2 % eye drops 1 drp BOTH EYES DAILYPRN PRN eye 10/07/24 10/07/24 History
irritation
valsartan 80 mg tablet 80 mg PO DAILY Blood Pressure 10/07/24 10/07/24 History
Review of Systems
-
Unable to obtain full review of systems at this time due to: Language Barrier
Physical Exam
Vital Signs
Temp Pulse Resp BP Pulse Ox
98 F 82 18 163/76 98
10/09/24 11:47 10/09/24 11:47 10/09/24 11:47 10/09/24 11:47 10/09/24 11:47
Lab Results
10/08/24 07:02
10/08/24 07:02
Troponin I < 0.012 ng/ml 10/07/24 16:11
Physical Exam
General: Well Developed, Well Nourished, No Apparent Distress and Comfortable
HEENT: Normocephalic, Anicteric and Moist Mucous Membranes
Respiratory: Clear and Non Labored Respirations
Cardiac: S1/S2 and Regular Rhythm
Breast: Deferred by me
GI: Soft, Non Tender, Non Distended and Normal Bowel Sounds
Rectal: Deferred by Provider
Genito-urinary: No Costovertebral Tender
Musculoskeletal: No Clubbing, No Cyanosis and No Edema
Skin: Warm and Dry
Neuro: Awake, Alert, Oriented (per family) and Other (speech garbled)
Hematologic/Lymphatic: No Lymphadenopathy
Psych: Calm
Impression / Plan
-
BACKGROUND: 79F with hypertension, dyslipidemia, LBBB, nonobstructive coronary artery disease, renal artery atherosclerosis (on clopidogrel), COPD, osteoporosis, and arthritis presented with unresponsiveness
Primary project scheduler: Dr. Maciel
IMPRESSION/PLAN:
CVA, neurology following
Paroxysmal atrial fibrillation
-Brief run seen on 10/09/2024 at 00:12
-Add metoprolol succinate 25mg
-Oral Anticoagulation: On DAPT, would transition to apixaban 2.5mg BID (age 79, weight < 60kg)
-[id number]: score at least 7 (HTN, age 75 or more, prior Stroke/TIA, Vascular disease, female gender)
HTN, BP above goal, nifedipine added by primary service
HLD, LDL below goal on current therapy, given acute CVA transition to atorvastatin
Non obstructive CAD, stable without chest pain
Renal artery atherosclerosis
DATA:
Neck MRA, 10/08/2024:
IMPRESSION:
1 cm long segment of approximately 60% stenosis just distal to the origin of the right internal carotid artery
High-grade stenosis (exceeding 80%) at the origin of the right external carotid artery
Arterial structures of the neck otherwise widely patent.
Brain MRI, 10/08/2024:
IMPRESSION:
3.0 x 1.9 cm acute, nonhemorrhagic infarct. This is centered in the right centrum semiovale.
It extends into the subcortical white matter of posterior right frontal lobe and anterior right parietal lobe.
Data Reviewed
-
EKG: Report Reviewed by me
Labs: Labs Reviewed by me
Old Records: Reviewed
[2024-10-09] MEDS: TYLENOL 650 MG PO (14:57)
--- NOTE | 2024-10-09 15:46 | W.PN.HOSP.TC ---
Today's Communication/Plan
-
see note
Assessment / Plan
Assessment / Plan
MRI brain
3.0 x 1.9 cm acute, nonhemorrhagic infarct. This is centered in the right centrum semiovale. It extends into the subcortical white matter of posterior right frontal lobe and anterior right parietal lobe. No mass effect related to this infarct
Moderate cerebral atrophy along with chronic small vessel ischemia elsewhere in the cerebral white matter.
MRA neck
1 cm long segment of approximately 60% stenosis just distal to the origin of the right internal carotid artery

1. Right sided CVA
-Patient had slurred speech which can possibly be related to decrease cerebral perfusion versus true CVA
-Speech changes has resolved largely in ER.
-CT head without contrast ruled out hemorrhagic CVA
-MRI brain and MRA head and neck report as above
-TTE w bubble study neg
-Patient have ipsilateral right internal carotid artery stenosis of 60%, vascular surgery evaluated and based on carotid Doppler and MRA evaluation recommended against any surgical correction
-Patient have A-fib per cardiology evaluation, patient will be transition to oral Eliquis from evening. Aspirin and Plavix to be stopped
-Statin dose increased
-PMR consulted patient will be evaluated for acute rehab
2. Paroxysmal afib
-Patient evaluated by cardiology and felt to have a short run of Afib
-cardio recommended starting DOAC
3. Syncope
-Patient was found to be slumped over in sofa
-No previous reported history of single
-Patient does not remember any preceding symptoms
-Patient hypertensive in ER, ortho vitals neg.
-No reported history of head injury/seziures in the past , monitor.
4. HTN urgency - Improved
Essential hypertension
-Procardia given in the morning although patient was started on metoprolol for rate control, will discontinue further dose of procardia.
-Continue home dose of Diovan
HLD
Hypothyroidism
Neuropathy
Allergy
Right TKR
Right shoulder replacement
GERD
Osteoporosis
DVT PPX - scd
Full code
Discussed with neurology/cardiology/vascu sx
Family updated at bedside
Anticipated Discharge: > 48 hours
Subjective/Interval History
-
Date of Service: October 09, 2024
Patient continued to have some left-sided facial droop difficulty with swallowing
Denies of any acute issues overnight
Objective Data
-
Vital Signs:
Vital Signs
Temp Pulse Resp BP Pulse Ox
98.4 F 94 22 118/60 96
10/09/24 15:25 10/09/24 15:25 10/09/24 15:25 10/09/24 15:25 10/09/24 15:25
I&O
10/08/24 10/09/24 10/10/24
06:59 06:59 06:59
Intake Total 240 / 240 840 / 840
Output Total 100 / 100
Balance 140 / 140 840 / 840
Review of Systems
-
Respiratory: Reports No Symptoms
Cardiac: Reports No Symptoms
Abdomen/GI: Reports No Symptoms
Physical Exam
-
General: No Apparent Distress and Comfortable
HEENT: Negative Oxygen
Musculoskeletal: No Edema
Neuro: Awake, Alert, Oriented, Slurred Speech, Facial Droop and Other (LUE weakness)
Psych: Calm
--- NOTE | 2024-10-09 15:53 | PTCARENOTE ---
Report called to TEVIN Givens on .
[2024-10-09] MEDS: TOPROL XL 25 MG PO (18:51)
[2024-10-09] MEDS: LEXAPRO 10 MG PO (21:27)
[2024-10-09] MEDS: ELIQUIS 2.5 MG PO (21:27)
[2024-10-09] MEDS: NEURONTIN 100 MG PO (21:27)
[2024-10-09] MEDS: PEPCID 20 MG PO (21:28)
[2024-10-10] VITALS (7 sets, daily range): BP systolic 118–148; BP diastolic 64–74
[2024-10-10] MEDS: SYNTHROID 75 MCG PO (05:30)
[2024-10-10 06:53] LABS: Hematocrit 35.7 % (37.0-47.0); Hemoglobin 11.2 g/dL (12.0-16.0); Mean Corp Hgb Conc. 31.4 g/dL (33.0-37.0); Mean Corpuscular Hgb 24.7 pg (27.0-31.0); Mean Corpuscular Volume 78.8 fL (81.0-99.0); Mean Platelet Volume 10.4 fL (7.4-10.4); Platelet Count 335 10^3/uL (130-400); Red Blood Cell Count 4.53 10^6/uL (4.20-5.40); White Blood Cell Count 9.5 10^3/uL (4.8-10.8)
[2024-10-10 07:16] LABS: Blood Urea Nitrogen 13 mg/dl (7-17); Calcium 9.9 mg/dl (8.4-10.2); Carbon Dioxide 24 mmol/L (22-30); Chloride 102 mmol/L (98-107); Estimated Creatinine Clearance 42 ml/min; Glucose 102 mg/dl (70-99); Potassium 4.5 mmol/L (3.5-5.1); Sodium 139 mmol/L (135-145); eGFR > 60.00
[2024-10-10] MEDS: SYMBICORT 160/4.5 MCG INHALER 2 PUFF INH ×2 (08:49→21:27)
--- NOTE | 2024-10-10 09:50 | W.PN.HOSP.TC ---
Today's Communication/Plan
-
continue PT/OT as tolerated
maintain on eliquis/statin
continue ST evaluation
monitor on telemetry
Assessment / Plan
Assessment / Plan
MRI brain
3.0 x 1.9 cm acute, nonhemorrhagic infarct. This is centered in the right centrum semiovale. It extends into the subcortical white matter of posterior right frontal lobe and anterior right parietal lobe. No mass effect related to this infarct
Moderate cerebral atrophy along with chronic small vessel ischemia elsewhere in the cerebral white matter.
MRA neck
1 cm long segment of approximately 60% stenosis just distal to the origin of the right internal carotid artery

1. Right sided CVA
-Patient had slurred speech which can possibly be related to decrease cerebral perfusion versus true CVA
-Speech changes has resolved largely in ER.
-CT head without contrast ruled out hemorrhagic CVA
-MRI brain and MRA head and neck report as above
-TTE w bubble study neg
-Patient have ipsilateral right internal carotid artery stenosis of 60%, vascular surgery evaluated and based on carotid Doppler and MRA evaluation recommended against any surgical correction.
-Patient have A-fib per cardiology evaluation, patient will be transition to oral Eliquis from evening. Aspirin and Plavix to be stopped
-Statin changed to high intensity, on lipitor 40mg/d
-PMR consulted patient will be evaluated for acute rehab
2. Paroxysmal afib
-Patient evaluated by cardiology and felt to have a short run of Afib on tele
-cardio recommended starting DOAC
3. Syncope
-Patient was found to be slumped over in sofa
-No previous reported history of single
-Patient does not remember any preceding symptoms
-Patient hypertensive in ER, ortho vitals neg.
-No reported history of head injury/seziures in the past , monitor.
4. HTN urgency - Improved
Essential hypertension
-maintain on diovan
-provide dose of toprol xl
HLD
Hypothyroidism
Neuropathy
Allergy
Right TKR
Right shoulder replacement
GERD
Osteoporosis
DVT PPX - scd
Full code
Discussed care with patient nephew at bedside.
Anticipated Discharge: > 48 hours
Subjective/Interval History
-
Date of Service: October 10, 2024
patient continues to have dense paralysis in LUE, have slurred speech
reported sleep disturbance
no other issues overnight
Objective Data
-
Labs:
Laboratory Results
10/10/24
06:34
WBC 9.5
Hgb 11.2 L
Hct 35.7 L
Plt Count 335
Sodium 139
Potassium 4.5
Chloride 102
Carbon Dioxide 24
BUN 13
Creatinine 0.8
Glucose 102 H
Calcium 9.9
Vital Signs:
Vital Signs
Temp Pulse Resp BP Pulse Ox
98.6 F 65 16 132/69 6
10/10/24 03:00 10/10/24 08:54 10/10/24 08:54 10/10/24 03:00 10/10/24 08:54
I&O
10/09/24 10/10/24 10/11/24
06:59 06:59 06:59
Intake Total 240 / 240 1515 / 1515
Output Total 100 / 100
Balance 140 / 140 1515 / 1515
Review of Systems
-
Respiratory: Reports No Symptoms
Cardiac: Reports No Symptoms
Abdomen/GI: Reports No Symptoms
Physical Exam
-
General: No Apparent Distress and Comfortable
HEENT: Negative Oxygen
Musculoskeletal: No Edema
Neuro: Awake, Alert, Oriented, Slurred Speech, Facial Droop and Other (LUE weakness)
Psych: Calm
[2024-10-10] MEDS: PROTONIX 40 MG PO (10:43)
[2024-10-10] MEDS: LIPITOR 40 MG PO (10:43)
[2024-10-10] MEDS: OSCAL 500 + D 500 MG PO ×2 (10:43→20:37)
[2024-10-10] MEDS: ELIQUIS 2.5 MG PO ×2 (10:44→20:37)
[2024-10-10] MEDS: SINGULAIR 10 MG PO (10:44)
[2024-10-10] MEDS: DIOVAN 80 MG PO (10:44)
[2024-10-10] MEDS: THERAGRAN PO (11:37)
[2024-10-10] MEDS: TOPROL XL 25 MG PO (18:33)
[2024-10-10] MEDS: PEPCID 20 MG PO (22:00)
[2024-10-10] MEDS: TYLENOL 650 MG PO (22:00)
[2024-10-10] MEDS: NEURONTIN 100 MG PO (22:00)
[2024-10-10] MEDS: LEXAPRO 10 MG PO (22:00)
[2024-10-11 03:26] VITALS: BP 152/71
[2024-10-11] MEDS: SYNTHROID 75 MCG PO (05:59)
[2024-10-11 07:37] VITALS: BP 164/79
[2024-10-11] MEDS: LIPITOR 40 MG PO (08:08)
[2024-10-11] MEDS: ELIQUIS 2.5 MG PO ×2 (08:08→20:03)
[2024-10-11] MEDS: DIOVAN 80 MG PO (08:08)
[2024-10-11] MEDS: PROTONIX 40 MG PO (08:08)
[2024-10-11] MEDS: OSCAL 500 + D 500 MG PO ×2 (08:08→20:04)
[2024-10-11] MEDS: SINGULAIR 10 MG PO (08:08)
[2024-10-11] MEDS: SYMBICORT 160/4.5 MCG INHALER 2 PUFF INH ×2 (08:17→20:54)
[2024-10-11] MEDS: THERAGRAN PO (11:46)
[2024-10-11 12:20] VITALS: BP 106/64
--- NOTE | 2024-10-11 13:09 | CM ---
Chart reviewed and per physical therapy recommendation is for acute rehab, lead case manager will reach out to insurance to request an Auth for acute rehab however insurance may request that patient be able to ambulate a few feet in order tolerate acute
rehab program.
Plan; To follow up with [place] [facility], see if there is a bed for [facility] and then obtain Auth.
--- NOTE | 2024-10-11 13:54 | W.PN.HOSP.TC ---
Today's Communication/Plan
-
repeat CT head w/o contrast
continue PT/OT/ST
eventual [facility] d/c
Assessment / Plan
Assessment / Plan
MRI brain
3.0 x 1.9 cm acute, nonhemorrhagic infarct. This is centered in the right centrum semiovale. It extends into the subcortical white matter of posterior right frontal lobe and anterior right parietal lobe. No mass effect related to this infarct
Moderate cerebral atrophy along with chronic small vessel ischemia elsewhere in the cerebral white matter.
MRA neck
1 cm long segment of approximately 60% stenosis just distal to the origin of the right internal carotid artery

1. Right sided CVA
-Patient had slurred speech which can possibly be related to decrease cerebral perfusion versus true CVA
-Speech changes has resolved largely in ER.
-CT head without contrast ruled out hemorrhagic CVA
-MRI brain and MRA head and neck report as above
-TTE w bubble study neg
-Patient have ipsilateral right internal carotid artery stenosis of 60%, vascular surgery evaluated and based on carotid Doppler and MRA evaluation recommended against any surgical correction.
-Patient have A-fib per cardiology evaluation, patient will be transition to oral Eliquis from evening. Aspirin and Plavix to be stopped
-Statin changed to high intensity, on lipitor 40mg/d
-PMR consulted patient will be evaluated for acute rehab
-Repeat CT head ordered - continues to have dense paresis on LUE.
2. Paroxysmal afib
-Patient evaluated by cardiology and felt to have a short run of Afib on tele
-cardio recommended starting DOAC
3. Syncope
-Patient was found to be slumped over in sofa
-No previous reported history of single
-Patient does not remember any preceding symptoms
-Patient hypertensive in ER, ortho vitals neg.
-No reported history of head injury/seziures in the past , monitor.
4. HTN urgency - Improved
Essential hypertension
-maintain on diovan
-provide dose of toprol xl
HLD
Hypothyroidism
Neuropathy
Allergy
Right TKR
Right shoulder replacement
GERD
Osteoporosis
DVT PPX - scd
Full code
10/11 care plan discussed with family at bedside.
Anticipated Discharge: Within 24 hours
Subjective/Interval History
-
Date of Service: October 11, 2024
No acute issues reported overnight
Objective Data
-
Vital Signs:
Vital Signs
Temp Pulse Resp BP Pulse Ox
98.8 F 60 20 106/64 93
10/11/24 12:20 10/11/24 12:20 10/11/24 12:20 10/11/24 12:20 10/11/24 12:20
I&O
10/10/24 10/11/24 10/12/24
06:59 06:59 06:59
Intake Total 1515 / 1515 600 / 600 180 / 180
Output Total 0 / 0
Balance 1515 / 1515 600 / 600 180 / 180
Review of Systems
-
Respiratory: Reports No Symptoms
Cardiac: Reports No Symptoms
Abdomen/GI: Reports No Symptoms
Physical Exam
-
General: No Apparent Distress and Comfortable
HEENT: Negative Oxygen
Cardiac: Murmur
Musculoskeletal: No Edema
Neuro: Awake, Alert, Oriented, Slurred Speech, Facial Droop and Other (LUE weakness, LLE motor power 4/5)
Psych: Calm
[2024-10-11 14:43] VITALS: BP 101/52; O2SAT 92
[2024-10-11] MEDS: TOPROL XL 25 MG PO (17:55)
[2024-10-11 19:29] VITALS: BP 134/63
[2024-10-11] MEDS: TYLENOL 650 MG PO (20:04)
[2024-10-11] MEDS: LEXAPRO 10 MG PO (21:51)
[2024-10-11] MEDS: NEURONTIN 100 MG PO (21:51)
[2024-10-11] MEDS: PEPCID 20 MG PO (21:51)
[2024-10-11 23:50] VITALS: BP 145/60
[2024-10-12] VITALS (7 sets, daily range): BP systolic 109–158; BP diastolic 57–81; PULSE 59; O2SAT 96
[2024-10-12] MEDS: SYNTHROID 75 MCG PO (05:21)
[2024-10-12] MEDS: SYMBICORT 160/4.5 MCG INHALER 2 PUFF INH ×2 (08:11→19:45)
[2024-10-12] MEDS: LIPITOR 40 MG PO (08:24)
[2024-10-12] MEDS: SINGULAIR 10 MG PO (08:24)
[2024-10-12] MEDS: PROTONIX 40 MG PO (08:24)
[2024-10-12] MEDS: DIOVAN 80 MG PO (08:24)
[2024-10-12] MEDS: ELIQUIS 2.5 MG PO ×2 (08:24→21:02)
[2024-10-12] MEDS: OSCAL 500 + D 500 MG PO ×2 (08:24→21:02)
[2024-10-12 08:49] LABS: Mean Corp Hgb Conc. 30.8 g/dL (33.0-37.0); Mean Corpuscular Hgb 24.7 pg (27.0-31.0); Mean Corpuscular Volume 80.2 fL (81.0-99.0); Mean Platelet Volume 10.7 fL (7.4-10.4); Platelet Count 357 10^3/uL (130-400); Red Blood Cell Count 4.86 10^6/uL (4.20-5.40); Red Cell Dist. Width 18.1 % (11.5-14.5); White Blood Cell Count 8.1 10^3/uL (4.8-10.8)
[2024-10-12 09:42] LABS: Blood Urea Nitrogen 18 mg/dl (7-17); Calcium 9.6 mg/dl (8.4-10.2); Carbon Dioxide 23 mmol/L (22-30); Chloride 102 mmol/L (98-107); Estimated Creatinine Clearance 42 ml/min; Glucose 103 mg/dl (70-99); Potassium 4.9 mmol/L (3.5-5.1); Sodium 138 mmol/L (135-145); eGFR > 60.00
[2024-10-12] MEDS: THERAGRAN PO (11:25)
--- NOTE | 2024-10-12 14:18 | CM ---
Chart reviewed and case aide spoke with patient's physician and patient has been cleared for discharge, plan is for acute rehab at [facility], case aide spoke with admissions at [facility] and they have a bed for patient today. Family are aware and
agreeable to plan.
All clinicals faxed to [facility] for acute rehab Auth, pending ref # [id number]
[facility] .
Plan; Acute rehab placement at [facility] pending Auth from [facility]
[2024-10-12] MEDS: MIRALAX PO (14:24)
--- NOTE | 2024-10-12 15:11 | W.PN.HOSP.TC ---
Today's Communication/Plan
-
d/c planning for snf rehab
Assessment / Plan
Assessment / Plan
MRI brain
3.0 x 1.9 cm acute, nonhemorrhagic infarct. This is centered in the right centrum semiovale. It extends into the subcortical white matter of posterior right frontal lobe and anterior right parietal lobe. No mass effect related to this infarct
Moderate cerebral atrophy along with chronic small vessel ischemia elsewhere in the cerebral white matter.
MRA neck
1 cm long segment of approximately 60% stenosis just distal to the origin of the right internal carotid artery
CT head
Evolving subacute right frontal lobe infarction. No hemorrhagic transformation or abnormal mass effect.

1. Right sided CVA
-Patient had slurred speech which can possibly be related to decrease cerebral perfusion versus true CVA
-Speech changes has resolved largely in ER.
-CT head without contrast ruled out hemorrhagic CVA
-MRI brain and MRA head and neck report as above
-TTE w bubble study neg
-Patient have ipsilateral right internal carotid artery stenosis of 60%, vascular surgery evaluated and based on carotid Doppler and MRA evaluation recommended against any surgical correction.
-Patient have A-fib per cardiology evaluation, patient will be transition to oral Eliquis from evening. Aspirin and Plavix to be stopped
-Statin changed to high intensity, on lipitor 40mg/d
-CT head from yesterday showing evolving subacute right frontal lobe infarction. No hemorrhagic transformation
-Patient pending PMR evaluation and will require most rehab placement
2. Paroxysmal afib
-Patient evaluated by cardiology and felt to have a short run of Afib on tele
-cardio recommended starting DOAC
3. Syncope
-Patient was found to be slumped over in sofa
-No previous reported history of single
-Patient does not remember any preceding symptoms
-Patient hypertensive in ER, ortho vitals neg.
-No reported history of head injury/seziures in the past , monitor.
4. HTN urgency - Improved
Essential hypertension
-maintain on diovan
-provide dose of toprol xl
5. Constipation
-Provide dose of MiraLAX, will add senna/milk of mag if no bowel movement in next 24 hours
HLD
Hypothyroidism
Neuropathy
Allergy
Right TKR
Right shoulder replacement
GERD
Osteoporosis
DVT PPX - scd
Full code
10/11 care plan discussed with family at bedside.
Anticipated Discharge: Within 24 hours
Subjective/Interval History
-
Date of Service: October 12, 2024
no complains overnight
Objective Data
-
Labs:
Laboratory Results
10/12/24
08:20
WBC 8.1
Hgb 12.0
Hct 39.0
Plt Count 357
Sodium 138
Potassium 4.9
Chloride 102
Carbon Dioxide 23
BUN 18 H
Creatinine 0.8
Glucose 103 H
Calcium 9.6
Vital Signs:
Vital Signs
Temp Pulse Resp BP Pulse Ox
98.0 F 87 17 132/72 98
10/12/24 10:40 10/12/24 10:40 10/12/24 10:40 10/12/24 10:40 10/12/24 10:40
I&O
10/11/24 10/12/24 10/13/24
06:59 06:59 06:59
Intake Total 600 / 600 420 / 420
Output Total 0 / 0
Balance 600 / 600 420 / 420
Review of Systems
-
Respiratory: Reports No Symptoms
Cardiac: Reports No Symptoms
Abdomen/GI: Reports No Symptoms
Physical Exam
-
General: No Apparent Distress and Comfortable
HEENT: Negative Oxygen
Cardiac: Murmur
Musculoskeletal: No Edema
Neuro: Awake, Alert, Oriented, Slurred Speech, Facial Droop and Other (LUE weakness, LLE motor power 4/5)
Psych: Calm
[2024-10-12] MEDS: TYLENOL 650 MG PO (15:49)
[2024-10-12] MEDS: TOPROL XL 25 MG PO (18:01)
[2024-10-12] MEDS: NEURONTIN 100 MG PO (21:02)
[2024-10-12] MEDS: PEPCID 20 MG PO (21:02)
[2024-10-12] MEDS: LEXAPRO 10 MG PO (21:04)
[2024-10-13 03:40] VITALS: BP 125/88
[2024-10-13] MEDS: SYNTHROID 75 MCG PO (05:56)
[2024-10-13] MEDS: SYMBICORT 160/4.5 MCG INHALER 2 PUFF INH (07:43)
[2024-10-13 08:12] LABS: Hematocrit 38.1 % (37.0-47.0); Hemoglobin 11.7 g/dL (12.0-16.0); Mean Corp Hgb Conc. 30.7 g/dL (33.0-37.0); Mean Corpuscular Hgb 24.5 pg (27.0-31.0); Mean Corpuscular Volume 79.9 fL (81.0-99.0); Platelet Count 347 10^3/uL (130-400); Red Blood Cell Count 4.77 10^6/uL (4.20-5.40); Red Cell Dist. Width 18.2 % (11.5-14.5); White Blood Cell Count 8.1 10^3/uL (4.8-10.8)
[2024-10-13 08:17] VITALS: BP 120/65
[2024-10-13] MEDS: DIOVAN 80 MG PO (08:32)
[2024-10-13] MEDS: SINGULAIR 10 MG PO (08:33)
[2024-10-13] MEDS: LIPITOR 40 MG PO (08:33)
[2024-10-13] MEDS: ELIQUIS 2.5 MG PO (08:33)
[2024-10-13] MEDS: PROTONIX 40 MG PO (08:33)
[2024-10-13] MEDS: OSCAL 500 + D 500 MG PO (08:33)
[2024-10-13] MEDS: MIRALAX 17 GRAMS PO (08:34)
[2024-10-13 08:51] LABS: Blood Urea Nitrogen 21 mg/dl (7-17); Calcium 9.3 mg/dl (8.4-10.2); Carbon Dioxide 22 mmol/L (22-30); Chloride 102 mmol/L (98-107); Estimated Creatinine Clearance 42 ml/min; Glucose 97 mg/dl (70-99); Potassium 4.7 mmol/L (3.5-5.1); Sodium 137 mmol/L (135-145); eGFR > 60.00
--- NOTE | 2024-10-13 10:26 | CM ---
Patient son seen in room. No auth from [facility] as of yet. CM spoke with liaison from [facility] and they are awaiting auth and continue to monitor for transfer with appropriate auth in place and pending bed availability. CM will continue to follow for
discharge planning needs.
Plan; [facility] pending auth and bed availability
[2024-10-13 11:08] VITALS: BP 112/55
[2024-10-13] MEDS: THERAGRAN 1 TABLET PO (12:04)
--- NOTE | 2024-10-13 12:45 | CM ---
Fax received from [employer]
Acute Rehab approval, level 1
Ref# [id number]
Approve 7 days
Dates 10/13/24-10/19/24
TT to CM
--- NOTE | 2024-10-13 14:33 | CM ---
CM updated [facility] [employer] sales representative and they will accept patient today. CM updated community service manager and spoke with patient son; reviewed IMM and will take to patient to sign. CM will continue to follow for discharge planning needs.
Plan; transfer to [facility] today.
--- NOTE | 2024-10-13 14:42 | W.PN.HOSP.TC ---
Today's Communication/Plan
-
d/c acute rehab
Assessment / Plan
Assessment / Plan
MRI brain
3.0 x 1.9 cm acute, nonhemorrhagic infarct. This is centered in the right centrum semiovale. It extends into the subcortical white matter of posterior right frontal lobe and anterior right parietal lobe. No mass effect related to this infarct
Moderate cerebral atrophy along with chronic small vessel ischemia elsewhere in the cerebral white matter.
MRA neck
1 cm long segment of approximately 60% stenosis just distal to the origin of the right internal carotid artery
CT head
Evolving subacute right frontal lobe infarction. No hemorrhagic transformation or abnormal mass effect.

1. Right sided CVA
-Patient had slurred speech which can possibly be related to decrease cerebral perfusion versus true CVA
-Speech changes has resolved largely in ER.
-CT head without contrast ruled out hemorrhagic CVA
-MRI brain and MRA head and neck report as above
-TTE w bubble study neg
-Patient have ipsilateral right internal carotid artery stenosis of 60%, vascular surgery evaluated and based on carotid Doppler and MRA evaluation recommended against any surgical correction.
-Patient have A-fib per cardiology evaluation, patient will be transition to oral Eliquis from evening. Aspirin and Plavix to be stopped
-Statin changed to high intensity, on lipitor 40mg/d
-CT head from yesterday showing evolving subacute right frontal lobe infarction. No hemorrhagic transformation
-Patient accepted by [facility] and plan to be discharged.
2. Paroxysmal afib
-Patient evaluated by cardiology and felt to have a short run of Afib on tele
-cardio recommended starting DOAC
3. Syncope
-Patient was found to be slumped over in sofa
-No previous reported history of single
-Patient does not remember any preceding symptoms
4. HTN urgency - Improved
Essential hypertension
-maintain on diovan
-provide dose of toprol xl PM for rate control as well.
5. Constipation
-Provide dose of MiraLAX, will add senna/milk of mag if no bowel movement in next 24 hours
HLD
Hypothyroidism
Neuropathy
Allergy
Right TKR
Right shoulder replacement
GERD
Osteoporosis
DVT PPX - scd
Full code
10/11 care plan discussed with family at bedside.
Anticipated Discharge: Today
Subjective/Interval History
-
Date of Service: October 13, 2024
No new complaints overnight
Continues to have min weakness in left upper extremity with some difficulty with swallowing
No telemetry events
Objective Data
-
Labs:
Laboratory Results
10/13/24
07:35
WBC 8.1
Hgb 11.7 L
Hct 38.1
Plt Count 347
Sodium 137
Potassium 4.7
Chloride 102
Carbon Dioxide 22
BUN 21 H
Creatinine 0.8
Glucose 97
Calcium 9.3
Vital Signs:
Vital Signs
Temp Pulse Resp BP Pulse Ox
98.3 F 58 18 112/55 98
10/13/24 11:08 10/13/24 11:08 10/13/24 11:08 10/13/24 11:08 10/13/24 11:08
I&O
10/12/24 10/13/24 10/14/24
06:59 06:59 06:59
Intake Total 420 / 420 720 / 720
Balance 420 / 420 720 / 720
Review of Systems
-
Respiratory: Reports No Symptoms
Cardiac: Reports No Symptoms
Abdomen/GI: Reports No Symptoms
Physical Exam
-
General: No Apparent Distress and Comfortable
HEENT: Negative Oxygen
Cardiac: Murmur
Musculoskeletal: No Edema
Neuro: Awake, Alert, Oriented, Slurred Speech, Facial Droop and Other (LUE weakness, LLE motor power 4/5)
Psych: Calm
[2024-10-13 16:05] VITALS: BP 121/60
--- NOTE | 2024-10-14 16:34 | W.DCSUMMARY ---
Discharge Summary
Discharge Data
Date of Admission: 10/08/24
Date of Discharge: 10/13/24
-
Pending Results: No
Hospital Course
Discharging Physician : Dr Moises Guerra
Disposition : [facility]
Primary care physician : Dr Carmen Paez
Principal Discharge diagnosis :
Right cerebral ischemic stroke
Paroxysmal atrial fibrillation
Right carotid arterial stenosis
Dysphagia
Chronic Discharge diagnosis :
Essential hypertension
Hyperlipidemia
Osteoporosis
Gastroesophageal reflux disease
Hypothyroidism
Hospital Course :
Patient is a 79-year-old female with mentioned past medical history was brought into ER after patient had a syncope episode and noted to having slurred speech afterward. Patient had a CT head in ER which did not show any acute abnormality. Patient
was evaluated by neurology for concern of stroke and was admitted to telemetry floor for further management. Patient NIH was low and was deemed not a candidate of tPA by neurology. Follow-up MRI brain next day showed right sided ischemic stroke.
And MRA head and neck showing right sided internal carotid arterial 60% stenosis. A follow-up carotid Doppler was done and vascular surgery was involved in care. Based on finding of MRA/carotid Doppler vascular surgery recommended against any
intervention. Patient was initially maintained on aspirin/Plavix, statin dose was increased to high intensity. An echocardiogram with bubble study was done which did not show any acute abnormality either. Cardiology was involved in care who
presented patient telemetry finding and suspected patient having paroxysmal A-fib episode. Cardiology/neurology recommended patient to be transition to oral Eliquis and aspirin/Plavix were discontinued. Patient was having dysphagia and was working
with speech therapy, VSE was done as well. Patient continued to have dense paresis mainly involving left upper extremity, a follow-up CT head was done after 72 hours in which showed evolving subacute right-sided stroke only. post medical
stabilization patient was evaluated by rehab physician and patient was discharged to [facility] for acute rehab.
Important imaging findings :
MRI brain
3.0 x 1.9 cm acute, nonhemorrhagic infarct. This is centered in the right centrum semiovale. It extends into the subcortical white matter of posterior right frontal lobe and anterior right parietal lobe. No mass effect related to this infarct
Moderate cerebral atrophy along with chronic small vessel ischemia elsewhere in the cerebral white matter.
MRA neck
1 cm long segment of approximately 60% stenosis just distal to the origin of the right internal carotid artery
Procedure findings :
None
Discharge Plan
-
Patient Disposition: Acute Rehab Facility
Discharge Diagnosis/Procedures: Right sided CVA, LUE/face weakness, parox afib
Condition: Fair
Diet: Other diet
Additional Diets: IDDSI 4/Pureed diet and thin liquids
Activity: As tolerated
Driving Restrictions: No driving
Bathing Restrictions: OK to Shower
Referrals:
Elie Maciel DO [Active] - in three to four weeks
Carmen Paez DO [Primary Care Provider] - in one week
Prescriptions:
New
Eliquis 2.5 mg Tablet
2.5 mg PO BID Qty: 60 0RF
atorvastatin 40 mg Tablet
40 mg PO DAILY Qty: 30 0RF
metoprolol succinate 25 mg Tablet Extended Release 24 Hr
25 mg PO QPM Qty: 30 0RF
Continued
alendronate [Fosamax] 70 mg Tablet
70 mg PO BRISCOE
levothyroxine 75 mcg Tablet
75 mcg PO DAILY
omeprazole 20 mg Capsule,Delayed Release(Dr/Ec)
20 mg PO DAILY
montelukast [Singulair] 10 mg Tablet
10 mg PO DAILY
gabapentin 100 mg Capsule
100 mg PO HS
oiukebqjdtkk-vfhwbptl-htenkp Tablet
1 tab PO NOON
escitalopram oxalate [Lexapro] 10 mg Tablet
10 mg PO HS
fluticasone furoate-vilanterol [Breo Ellipta] 200-25 mcg/dose Blister With Device
1 inh INHALATION R DAILY
famotidine 20 mg tablet
20 mg PO HS Qty: 30 0RF
acetaminophen 325 mg capsule
650 mg PO Q4H PRN (Reason: mild pain) Qty: 30 0RF
albuterol sulfate 90 mcg/actuation Hfa Aerosol Inhaler
1 inh INHALATION R Q6HPRN PRN (Reason: sob)
calcium carbonate-vitamin D3 [Calcium 600 + D(3)] 600 mg-10 mcg (400 unit) Tablet
1 tab PO BID
olopatadine 0.2 % Drops
1 drp BOTH EYES DAILYPRN PRN (Reason: eye irritation)
valsartan 80 MG tablet
80 mg PO DAILY
Discontinued
pravastatin 40 MG tablet
40 mg PO DAILY
clopidogrel 75 MG tablet
75 mg PO DAILY
Discharge Orders:
Discharge Patient (As Directed); Ordered 10/13/24
Ordered By: Moises Guerra
Discharge Date and Time
Discharge Date/Time: 10/13/24 17:16
Print Language: Esperanza
== END 2024-10-13 17:16 | DRG 66 ==
LOC: 4 WEST ACU 10:22
PROVIDERS: Physician Assistant; ADMITTING PHYSICIAN Hospitalist; CONSULT PHYSICIAN Internal Medicine Cardiovascular Disease; CONSULT PHYSICIAN Physical Medicine & Rehabilitation; CONSULT PHYSICIAN Psychiatry & Neurology Neurology; EMERGENCY PHYSICIAN Emergency Medicine; OTHER PHYSICIAN Surgery Vascular Surgery; PRIMARYCARE PHYSICIAN Family Medicine
DX: I63.89 Other cerebral infarction (principal); I10 Essential (primary) hypertension; I65.21 Occlusion and stenosis of right carotid artery; E78.00 Pure hypercholesterolemia, unspecified; E03.9 Hypothyroidism, unspecified; F32.A Depression, unspecified; R47.1 Dysarthria and anarthria; R29.701 NIHSS score 1; I44.7 Left bundle-branch block, unspecified; I25.10 Atherosclerotic heart disease of native coronary artery without angina pectoris; I70.1 Atherosclerosis of renal artery; M81.0 Age-related osteoporosis without current pathological fracture; I48.0 Paroxysmal atrial fibrillation; I16.0 Hypertensive urgency; G62.9 Polyneuropathy, unspecified; K59.00 Constipation, unspecified; D64.9 Anemia, unspecified; K21.9 Gastro-esophageal reflux disease without esophagitis; S00.83XA Contusion of other part of head, initial encounter; W19.XXXA Unspecified fall, initial encounter; R55 Syncope and collapse; J44.9 Chronic obstructive pulmonary disease, unspecified; Z96.651 Presence of right artificial knee joint; Z79.899 Other long term (current) drug therapy; Z79.890 Hormone replacement therapy; Z79.02 Long term (current) use of antithrombotics/antiplatelets; Z79.82 Long term (current) use of aspirin; Z79.51 Long term (current) use of inhaled steroids
CPT/HCPCS: 70450; 70496; 70498; 70544; 70548; 70551; 71045; 74230; 80048; 80061; 83036; 84484; 85025; 85027; 85610; 85730; 92507; 92523; 92526; 92610; 92611; 93005; 93306; 93880; 94640; 97110; 97112; 97116; 97163; 97167; 97530; 97535; 99285; A9585; Q9967

== ENCOUNTER 2024-10-25 08:10 | Emergency (ER) | payer MEDICARE, OTHER, SELFPAY ==
[2024-10-25 08:14] VITALS: BP 163/86
[2024-10-25 08:18] LABS: Glucose - Point of Care 106 mg/dl (70-99)
--- NOTE | 2024-10-25 08:21 | ED.GENMED ---
History of Present Illness
General
Chief Complaint: Change in Mental Status
Time Seen by Provider: 10/25/24 08:20
History of Present Illness
History of Present Illness:
TIME OF INITIAL ENCOUNTER: 8:25 AM
HPI: The patient was here about 2 weeks ago with stroke symptoms initially with a CT that was negative but then MRI confirmed an acute nonhemorrhagic infarct. She has been on Eliquis for atrial fibrillation. She was discharged to [facility]. She
was at her recent baseline last evening however slept poorly overnight and today the grandson noted stuttering similar to how she was when she presented 2 weeks ago. He was also concerned because of worsening left lower extremity weakness. The
left upper extremity weakness is about the same.
EXAM:
GENERAL: Well appearing in no distress
HEENT: Moist oral mucosa
CARDIOVASCULAR: No murmurs, normal heart rate, regular rhythm, No chest wall tenderness
PULMONARY: No respiratory distress, breath sounds are clear and equal
ABDOMEN: Soft with no peritoneal signs, no tenderness
NEUROLOGIC: Patient cannot lift the left lower extremity off the structure, she has nearly absent strength to the left upper extremity, some occasional stutter noted
PSYCHIATRIC: She knows her age but cannot name the month (inability to name the month was present even before she had the CVA)
EXTREMITIES: Nontender, no edema, moves all extremities equally
SKIN: No rash, no lesions
NUMBER AND COMPLEXITY OF PROBLEMS ADDRESSED AT THE ENCOUNTER
� Chronic conditions affecting care: CVA with left hemiparesis, interstitial lung disease, high blood pressure, hyperlipidemia, hypothyroidism
� Acute Exacerbation and/or Progression of Chronic Illness: This is worsening of a subacute problem
� Differential Diagnosis includes: Recurrent CVA/worsening CVA, hypoglycemia has been ruled out, lab abnormality
AMOUNT AND/OR COMPLEXITY OF DATA TO BE REVIEWED AND ANALYZED
� I performed an independent evaluation of and my interpretation is:
EKG: Sinus, tremor, no acute ST abnormality
CT: CT brain shows the recent stroke with no progression and no hemorrhage
X-rays:
Laboratory Studies: CBC unremarkable, chemistries unremarkable
Other:
� Review of other/old records: I reviewed the notes from [facility] from 10/23/2024. Records indicate the patient has a history of ambulatory dysfunction due to 'acute stroke with left hemiparesis, dysarthria, mild facial droop
and was to continue Eliquis 2.5 mg twice daily', right ICA stenosis, hypertension and PAF. I also reviewed discharge summary from last admission.
� Clinical information was obtained by an independent historian: I spoke to the grandson at bedside who assisted with translation as well and provided meaningful history (patient speaks Gujarati)
� Prescriptions/Medications Considered but not given:
� Further testing considered but not performed: Considered MRI�see below
RISK OF COMPLICATIONS AND/OR MORBIDITY OR MORTALITY OF PATIENT MANAGEMENT
� Social determinants of health affecting care: Currently staying at [facility]
� Discussion with other providers: I discussed case with Dr. Waters. Initially did recommend MRI of the brain to assess progression however he ultimately agreed that this could be done as an outpatient as it would not change any
management. He also recommends not adding any antiplatelets. Continue Eliquis.
� Escalation of care including admission/observation vs risk of discharge considered: Initial blood sugar 106. The patient is in a sinus rhythm. Initial vital signs unremarkable. On 10/07/24 came in w/ L weakness and
dysarthria; at that time, came in on aspirin then and Jt recommended adding Plavix. CT 10/07 neg, found to have PAF - switched from antiplatelets to Eliquis. Coming in from [facility] today, had some diarrhea and poor sleep recently, but was at her
recent baseline last night, but grandson noted stuttering speech and worsening of LLE weakness. Here, she cannot name month (old), cannot lift LUE (old), cannot lift LLE off stretcher (worse), and some dysarthria (worse). CT head today shows the
recent nonhemorrhagic infarct.
ANY OTHER UPDATES:
9:45 AM: Unchanged neurologic examination with some dysarthria/stuttering noted. Lab work relatively unremarkable. CT imaging similar to recent imaging.
Past History
Past History
ED Past Medical History: HTN, Hypercholesterolemia, Hypothyroidism, Psychiatric (Depression) and Other (Interstitial lung disease, osteoporosis)
ED Past Surgical History: Orthopedic (Al knee replacements, right shoulder surgery, ) and Other (Cataracts)
Social History
Tobacco: Non-smoker
Alcohol: None
Personal:
Living: with family
Employment: Retired
Family History
Family History: Other (Reviewed and noncontributory)
Phy Exam
Physical Exam
Physical Exam:
See HPI
Course
Orders/Labs/Results
Orders:
Orders
10/25/24 08:32
Electrocardiogram (*1) Urgent
Reason for Study: Atrial Fibrillation
CT Head W/o Iv Contrast Urgent
Comment:
Reason For Exam: worsening LLE weakness, worsening aphasia; CVA
EKG- Treatment ONCE
10/25/24 08:49
Complete Blood Count/With Diff Urgent
10/25/24 09:04
Basic Metabolic Panel Urgent
10/25/24 09:18
Urinalysis Reflex To Culture Urgent
Date Specimen was Collected: 10/25/24
Time Specimen was Collected: 09:15
Urine Microscopic Reflex Cult Urgent
Urine Culture Urgent
PADILLA Source: U
Specimen Description:
Date Specimen was Collected: 10/25/24
Time Specimen was Collected: 09:15
Abnormal Lab Results
10/25/24 10/25/24 10/25/24
08:17 08:49 09:04
Hgb 11.9 L g/dL
(12.0-16.0)
MCV 80.4 L fL
(81.0-99.0)
MCH 25.3 L pg
(27.0-31.0)
MCHC 31.5 L g/dL
(33.0-37.0)
RDW 18.6 H %
(11.5-14.5)
MPV 11.7 H fL
(7.4-10.4)
Absolute Lymphs (auto) 3.6 H 10^3/uL
(1.2-3.4)
Absolute Monos (auto) 0.9 H 10^3/uL
(0.1-0.6)
Monocytes % 9.8 H %
(1.7-9.3)
Glucose 103 H mg/dl
(70-99)
Leukocyte Esterase Rfl
Urine Bacteria (Reflex)
POC Glucose 106 H mg/dl
(70-99)
10/25/24
09:18
Hgb
MCV
MCH
MCHC
RDW
MPV
Absolute Lymphs (auto)
Absolute Monos (auto)
Monocytes %
Glucose
Leukocyte Esterase Rfl 1+ A
(Negative)
Urine Bacteria (Reflex) Few A
(Negative)
POC Glucose
10/25/24 08:49
10/25/24 09:04
Vital Signs
Blood pressure: 147/76
Initial and Last Documented VS:
Initial Vital Signs
Temp Pulse Resp BP Pulse Ox
36.8 C 92 18 163/86 100
10/25/24 08:14 10/25/24 08:14 10/25/24 08:14 10/25/24 08:14 10/25/24 08:14
Last Documented Vital Signs
Temp Pulse Resp BP Pulse Ox
36.8 C 71 17 147/76 97
10/25/24 08:14 10/25/24 09:00 10/25/24 09:00 10/25/24 09:51 10/25/24 09:00
*Critical Care Note
Total Time (30-74mins, 75-104mins- exclusive of procedures): Not Applicable
ED Attending Note
-
Portions of this chart may have been created with voice recognition software.� Occasional wrong word or��sound alike� substitutions may have occurred due to the inherent limitations of voice recognition software.
Discharge Plan
Departure
Patient Disposition: Home (Routine Discharge)
Date of Disposition: 10/25/24
Time of Disposition: 09:46
Patient with high blood pressure during this ER visit?: Yes
Discharge Problem:
Cerebral infarction, unspecified
Prescriptions:
No Action
alendronate [Fosamax] 70 mg Tablet
70 mg PO BRISCOE
levothyroxine 75 mcg Tablet
75 mcg PO DAILY
omeprazole 20 mg Capsule,Delayed Release(Dr/Ec)
20 mg PO DAILY
montelukast [Singulair] 10 mg Tablet
10 mg PO DAILY
gabapentin 100 mg Capsule
100 mg PO HS
pshjzqmigknh-leemvsiu-bocbcg Tablet
1 tab PO NOON
escitalopram oxalate [Lexapro] 10 mg Tablet
10 mg PO HS
fluticasone furoate-vilanterol [Breo Ellipta] 200-25 mcg/dose Blister With Device
1 inh INHALATION R DAILY
famotidine 20 mg tablet
20 mg PO HS Qty: 30 0RF
acetaminophen 325 mg capsule
650 mg PO Q4H PRN (Reason: mild pain) Qty: 30 0RF
albuterol sulfate 90 mcg/actuation Hfa Aerosol Inhaler
1 inh INHALATION R Q6HPRN PRN (Reason: sob)
calcium carbonate-vitamin D3 [Calcium 600 + D(3)] 600 mg-10 mcg (400 unit) Tablet
1 tab PO BID
olopatadine 0.2 % Drops
1 drp BOTH EYES DAILYPRN PRN (Reason: eye irritation)
valsartan 80 MG tablet
80 mg PO DAILY
Eliquis 2.5 mg Tablet
2.5 mg PO BID Qty: 60 0RF
atorvastatin 40 mg Tablet
40 mg PO DAILY Qty: 30 0RF
metoprolol succinate 25 mg Tablet Extended Release 24 Hr
25 mg PO QPM Qty: 30 0RF
Referrals:
Shawn Waters MD [Active] - Follow up in 10 days
Carmen Paez DO [Family Provider] -
Activity Restrictions/Additional Instructions:
Continue Eliquis. I spoke to Dr. Givens, the neurologist, he recommends not adding any antiplatelet such as aspirin or Plavix as she is already on Eliquis. He does recommend getting an outpatient MRI of the brain to assess progression of the stroke.
The CAT scan of the brain showed no new findings today in comparison to the CAT scan that she had prior to discharge. There is no bleeding in the brain today. EKG today show that she is in sinus rhythm. Basic blood work is unremarkable.
Interventions
Interventions:
*Risk Screen - Suicide Last Done: 10/25/24 08:14
*General Assessment Last Done: 10/25/24 08:14
*Neglect/Abuse Screening Last Done: 10/25/24 08:14
ED- Fall Risk Assessment Last Done: 10/25/24 08:54
ED- Pulmonary Assessment Last Done: 10/25/24 08:54
ED- Neurological Assessment Last Done: 10/25/24 08:26
ED- Cardiac Assessment Last Done: 10/25/24 08:54
Discharge Date and Time
Print Language: Esperanza
[2024-10-25 09:06] LABS: % Basophils 0.8 % (0-2); % Eosinophils 3.8 % (0-6); % Immature Granulocytes 0.3 % (0-0.5); % Lymphocytes 38.8 % (20.5-51.1); % Monocytes 9.8 % (1.7-9.3); % Neutrophils 46.5 % (42.2-75.2); Absolute Basophils 0.1 10^3/uL (0-0.2); Absolute Eosinophils 0.4 10^3/uL (0-0.7); Absolute Lymphocytes 3.6 10^3/uL (1.2-3.4); Absolute Monocytes 0.9 10^3/uL (0.1-0.6); Absolute Neutrophils 4.3 10^3/uL (1.4-6.5); Hematocrit 37.8 % (37.0-47.0); Hemoglobin 11.9 g/dL (12.0-16.0); Mean Corp Hgb Conc. 31.5 g/dL (33.0-37.0); Mean Corpuscular Hgb 25.3 pg (27.0-31.0); Mean Corpuscular Volume 80.4 fL (81.0-99.0); Mean Platelet Volume 11.7 fL (7.4-10.4); Nucleated Red Blood Cells % 0 %; Platelet Count 377 10^3/uL (130-400); Red Cell Dist. Width 18.6 % (11.5-14.5); White Blood Cell Count 9.3 10^3/uL (4.8-10.8)
[2024-10-25 09:28] LABS: Urine Albumin Trace (Neg - Trace); Urine Bilirubin Negative (Negative); Urine Character Clear (Clear); Urine Color Yellow; Urine Glucose Negative (Negative); Urine Ketone Negative (Negative); Urine Leukocyte 1+ (Negative); Urine Nitrite Negative (Negative); Urine Occult Blood Negative (Negative); Urine Urobilinogen Negative (Neg - 1+); Urine pH 6.5 (5.0-9.0)
[2024-10-25 09:32] LABS: Blood Urea Nitrogen 14 mg/dl (7-17); Calcium 9.5 mg/dl (8.4-10.2); Carbon Dioxide 26 mmol/L (22-30); Chloride 103 mmol/L (98-107); Glucose 103 mg/dl (70-99); Potassium 4.5 mmol/L (3.5-5.1); Sodium 140 mmol/L (135-145); eGFR > 60.00
[2024-10-25 09:42] LABS: Urine Red Blood Cell 0-2 /HPF (0-2)
[2024-10-25 09:43] LABS: Urine Bacteria Few (Negative)
== END 2024-10-25 10:09 ==
LOC: EMR 08:10
PROVIDERS: EMERGENCY PHYSICIAN Emergency Medicine; FAMILY PHYSICIAN Family Medicine
DX: I63.9 Cerebral infarction, unspecified (principal); I48.91 Unspecified atrial fibrillation; E03.9 Hypothyroidism, unspecified; E78.00 Pure hypercholesterolemia, unspecified; I10 Essential (primary) hypertension; Z79.01 Long term (current) use of anticoagulants
CPT/HCPCS: 99285; 70450; 80048; 81003; 81015; 82962; 85025; 87086; 93005

== ENCOUNTER 2025-02-18 15:24 | Outpatient (RCR) | payer MEDICARE, SELFPAY | END 2025-02-18 23:59 | disposition home or self-care (01) | LOC: RST 15:24 | PROVIDERS: ATTENDING PHYSICIAN Family Medicine | DX: I69.393 Ataxia following cerebral infarction (principal); R26.2 Difficulty in walking, not elsewhere classified; Z73.6 Limitation of activities due to disability; I69.328 Other speech and language deficits following cerebral infarction | CPT/HCPCS: 92523; 97110; 97112; 97116; 97140; 97163; 97167; 97530; 97535 ==

== ENCOUNTER → 2025-02-24 14:29 | Outpatient (REF) | payer MEDICARE, SELFPAY | LOC: HWRAD 14:29 | PROVIDERS: ATTENDING PHYSICIAN Psychiatry & Neurology Neurology; PRIMARYCARE PHYSICIAN Family Medicine | DX: I63.511 Cerebral infarction due to unspecified occlusion or stenosis of right middle cerebral artery (principal); M25.512 Pain in left shoulder | CPT/HCPCS: 70450; 73030 ==

== ENCOUNTER 2025-03-22 13:07 | Outpatient (RCR) | payer MEDICARE, SELFPAY | END 2025-03-22 23:59 | disposition home or self-care (01) | LOC: RST 13:07 | PROVIDERS: ATTENDING PHYSICIAN Family Medicine | DX: I69.393 Ataxia following cerebral infarction (principal); I69.320 Aphasia following cerebral infarction; I69.328 Other speech and language deficits following cerebral infarction; R26.2 Difficulty in walking, not elsewhere classified; Z73.6 Limitation of activities due to disability; M25.512 Pain in left shoulder | CPT/HCPCS: 97110; 97112; 97116; 97140; 97530; 97535 ==

== ENCOUNTER 2025-04-12 13:02 | Outpatient (RCR) | payer MEDICARE, SELFPAY | END 2025-04-12 23:59 | disposition home or self-care (01) | LOC: RST 13:02 | PROVIDERS: ATTENDING PHYSICIAN Family Medicine | DX: I69.393 Ataxia following cerebral infarction (principal); I69.320 Aphasia following cerebral infarction; I69.328 Other speech and language deficits following cerebral infarction; R26.2 Difficulty in walking, not elsewhere classified; Z73.6 Limitation of activities due to disability; M25.512 Pain in left shoulder | CPT/HCPCS: 97110; 97112; 97116; 97140; 97530; 97535 ==

== ENCOUNTER 2025-06-23 09:09 | Outpatient (RCR) | payer MEDICARE, SELFPAY | END 2025-06-23 23:59 | disposition home or self-care (01) | LOC: RPT 09:09 | PROVIDERS: ATTENDING PHYSICIAN Orthopaedic Surgery; FAMILY PHYSICIAN Family Medicine | DX: M76.52 Patellar tendinitis, left knee (principal); M76.892 Other specified enthesopathies of left lower limb, excluding foot; Z73.6 Limitation of activities due to disability; I69.354 Hemiplegia and hemiparesis following cerebral infarction affecting left non-dominant side; Z96.652 Presence of left artificial knee joint | CPT/HCPCS: 97110; 97116; 97140; 97162; 97530 ==

== ENCOUNTER 2025-07-15 10:01 | Outpatient (RCR) | payer MEDICARE, SELFPAY | END 2025-07-15 23:59 | disposition home or self-care (01) | LOC: RPT 10:01 | PROVIDERS: ATTENDING PHYSICIAN Orthopaedic Surgery; FAMILY PHYSICIAN Family Medicine | DX: M76.52 Patellar tendinitis, left knee (principal); M76.892 Other specified enthesopathies of left lower limb, excluding foot; Z73.6 Limitation of activities due to disability; I69.354 Hemiplegia and hemiparesis following cerebral infarction affecting left non-dominant side; Z96.652 Presence of left artificial knee joint | CPT/HCPCS: 97110; 97112; 97116; 97140; 97530 ==

== ENCOUNTER 2025-10-12 11:35 | Outpatient (RCR) | payer MEDICARE, SELFPAY | END 2025-10-12 23:59 | disposition home or self-care (01) | LOC: ROT 11:35 | PROVIDERS: ATTENDING PHYSICIAN Student in an Organized Health Care Education/Training Program; FAMILY PHYSICIAN Family Medicine | DX: M76.52 Patellar tendinitis, left knee (principal); M76.892 Other specified enthesopathies of left lower limb, excluding foot; Z73.6 Limitation of activities due to disability; I69.354 Hemiplegia and hemiparesis following cerebral infarction affecting left non-dominant side; Z96.652 Presence of left artificial knee joint; M25.512 Pain in left shoulder; M25.511 Pain in right shoulder; R26.89 Other abnormalities of gait and mobility; M25.562 Pain in left knee | CPT/HCPCS: 97010; 97110; 97112; 97116; 97140; 97164; 97167; 97530; 97535 ==

== ENCOUNTER 2025-10-28 15:41 | Outpatient (RCR) | payer MEDICARE, SELFPAY | END 2025-11-23 23:59 | disposition home or self-care (01) | LOC: ROT 15:41 | PROVIDERS: ATTENDING PHYSICIAN Student in an Organized Health Care Education/Training Program; FAMILY PHYSICIAN Family Medicine | DX: M76.52 Patellar tendinitis, left knee (principal); M76.892 Other specified enthesopathies of left lower limb, excluding foot; Z73.6 Limitation of activities due to disability; I69.354 Hemiplegia and hemiparesis following cerebral infarction affecting left non-dominant side; M25.512 Pain in left shoulder; M25.511 Pain in right shoulder; M25.562 Pain in left knee; R26.89 Other abnormalities of gait and mobility; Z96.652 Presence of left artificial knee joint | CPT/HCPCS: 97010; 97110; 97112; 97116; 97530 ==

== ENCOUNTER → 2025-11-02 13:36 | Outpatient (REF) | payer MEDICARE, OTHER, SELFPAY | LOC: RAD 13:36 | PROVIDERS: ATTENDING PHYSICIAN Physical Medicine & Rehabilitation; REFERRING PHYSICIAN Family Medicine | DX: M25.511 Pain in right shoulder (principal); Z01.818 Encounter for other preprocedural examination | CPT/HCPCS: 73030; 93005 ==

== ENCOUNTER → 2025-11-04 14:18 | Outpatient (REF) | payer MEDICARE, OTHER, SELFPAY | LOC: RAD 14:18 | PROVIDERS: ATTENDING PHYSICIAN Orthopaedic Surgery Hand Surgery; FAMILY PHYSICIAN Family Medicine | DX: S42.114A Nondisplaced fracture of body of scapula, right shoulder, initial encounter for closed fracture (principal) | CPT/HCPCS: 73200 ==